=== PATIENT | female | born 1950 | race African-American/Black ===

== ENCOUNTER 2023-12-16 01:25 | Emergency (ER) | payer OTHER, SELFPAY ==
[2023-12-16 01:29] VITALS: BP 171/106
[2023-12-16 02:28] VITALS: BP 150/89
[2023-12-16 02:29] VITALS: BMI 33.1
[2023-12-16 02:39] LABS: % Basophils 0.5 % (0-2); % Eosinophils 6.3 % (0-6); % Immature Granulocytes 0.3 % (0-0.5); % Lymphocytes 39.4 % (20.5-51.1); % Neutrophils 41.5 % (42.2-75.2); Absolute Eosinophils 0.4 10^3/uL (0-0.7); Absolute Lymphocytes 2.4 10^3/uL (1.2-3.4); Absolute Monocytes 0.7 10^3/uL (0.1-0.6); Absolute Neutrophils 2.6 10^3/uL (1.4-6.5); Hematocrit 38.3 % (37.0-47.0); Hemoglobin 13.6 g/dL (12.0-16.0); Mean Corp Hgb Conc. 35.5 g/dL (33.0-37.0); Mean Corpuscular Hgb 30.3 pg (27.0-31.0); Mean Corpuscular Volume 85.3 fL (81.0-99.0); Mean Platelet Volume 9.2 fL (7.4-10.4); Nucleated Red Blood Cells % 0 %; Platelet Count 277 10^3/uL (130-400); Red Blood Cell Count 4.49 10^6/uL (4.20-5.40); Red Cell Dist. Width 13.2 % (11.5-14.5); White Blood Cell Count 6.2 10^3/uL (4.8-10.8)
--- NOTE | 2023-12-16 02:39 | ED.GENMED ---
History of Present Illness
General
Chief Complaint: Heart Rate Problem
Source: patient
Exam Limitations: none
Time Seen by Provider: 12/16/23 02:00
Nursing documentation reviewed up to this point in time: agreed with
History of Present Illness
History of Present Illness:
Pleasant 73-year-old female who presents with palpitations. She states that the palpitations been going on for several days. She did states that she followed up with her family doctor and was prescribed vitamin D due to low vitamin D levels.
Denies chest pain. She did have occasional shortness of breath but has none now. Denies fever or chills.
Past History
Past History
ED Past Medical History: HTN
Social History
Tobacco: Non-smoker
Alcohol: None
Personal: Partner
Living: with roommate
Employment: Not employed
Review of Systems
Review of Systems
Allergies reviewed?: Yes
All Other Systems: ROS reviewed and negative except as documented in HPI and ROS
Constitutional: Reports no symptoms
EENT: Reports no symptoms
Respiratory: Denies cough or trouble breathing
Cardiac: Reports palpitations; Denies chest pain or diaphoresis
ABD/GI: Reports no symptoms
: Reports no symptoms
Musculoskeletal: Reports no symptoms
Skin: Reports no symptoms
Neurological: Reports no symptoms
Endocrine: Reports no symptoms
Hematologic/Lymphatic: Reports no symptoms
Psychiatric: Reports no symptoms
Phy Exam
General Physical Exam
General Presentation: well appearing and no apparent distress
General Skin: warm and dry
General Habitus: normal
General Mental: alert
General Hydration: appears well hydrated
ENT Exam
ENT Exam: EOMI, pharynx normal, neck supple and normocephalic
Eye Exam
Eye Exam: PERRL, cornea clear and conjunctiva normal
Cardiovascular Exam
Cardiovascular Exam: regular rate/rhythm, no edema, no murmur and normal peripheral pulses
Pulmonary Exam
Pulmonary Exam: lungs clear, no respiratory distress, no rales, no crackles, no rhonchi, no stridor, no wheezing and no cough
Gastrointestinal Exam
Gastrointestinal Exam: normal bowel sounds, non tender, soft, no organomegaly, no pulsatile mass and non distended
Neurological Exam
Neurological Exam: alert, oriented x3, no motor deficits and speech normal
Musculoskeletal Exam
Musculoskeletal Exam: full ROM and no edema
Skin Exam
Skin Exam: normal color, warm/dry, no rash and no petechia
Psychiatric Exam
Psychiatric Exam: normal mood/affect
Course
Orders/Labs/Results
Orders:
Orders
12/16/23
Electrocardiogram (*1) Stat
Other Reason for Exam: CP
Comment: DONE
12/16/23 01:31
ECG [Electrocardiogram (*1)] Urgent
Reason for Study: Palpitations
EKG- Treatment ONCE
12/16/23 02:23
Complete Blood Count/With Diff Urgent
Comprehensive Metabolic Panel Urgent
Troponin I Urgent
Vitamin D, 25-Oh Urgent
12/16/23 03:52
Add On- LAB Urgent
Tests Added?: vitamin D level
12/16/23 04:46
Troponin I Urgent
Abnormal Lab Results
12/16/23
02:23
Absolute Monos (auto) 0.7 H 10^3/uL
(0.1-0.6)
Neutrophils % 41.5 L %
(42.2-75.2)
Monocytes % 12.0 H %
(1.7-9.3)
Eosinophils % 6.3 H %
(0-6)
Glucose 123 H mg/dl
(70-99)
Vitamin D 25-Hydroxy 17.7 L ng/mL
(30-80)
12/16/23 02:23
12/16/23 02:23
Vital Signs
Initial and Last Documented VS:
Initial Vital Signs
Temp Pulse Resp BP Pulse Ox
98.0 F 81 19 171/106 96
12/16/23 01:29 12/16/23 01:29 12/16/23 01:29 12/16/23 01:29 12/16/23 01:29
Last Documented Vital Signs
Temp Pulse Resp BP Pulse Ox
98.0 F 87 18 134/85 100
12/16/23 01:29 12/16/23 06:45 12/16/23 06:45 12/16/23 06:00 12/16/23 06:45
*Critical Care Note
Total Time (30-74mins, 75-104mins- exclusive of procedures): Not Applicable
ED Attending Note
-
Portions of this chart may have been created with voice recognition software.� Occasional wrong word or��sound alike� substitutions may have occurred due to the inherent limitations of voice recognition software.
Discharge Plan
Departure
Patient Disposition: Home (Routine Discharge)
Date of Disposition: 12/16/23
Time of Disposition: 06:25
Patient with high blood pressure during this ER visit?: Yes
Condition: Good
Discharge Problem:
Palpitations
Instructions: Palpitations (DC), BLOOD PRESSURE
Prescriptions:
No Action
Vitamin D2 25,000 unit Capsule
50,000 unit PO WEEKLY
Referrals:
Jareth Eugnee DO [Family Provider] -
Activity Restrictions/Additional Instructions:
It was a pleasure meeting you and taking part in your care. We hope for your continued healing and wellness.
Please read discharge instructions in their entirety. However, they are for general education and may not describe your exact diagnosis at discharge. Information on your ER visit and medical conditions were discussed with you along with appropriate
follow up information...
If indicated, please take your medications as instructed and indicated on discharge paperwork.
Please schedule a follow up appointment as directed. Call to schedule an appointment
Please return to the emergency department with ANY change in, persisting, or worsening of symptoms. If any of your symptoms do not improve, or persist, or become more severe within 6-12 hours, please return to the emergency department for further
care.
Please return to the emergency department if you develop a headache, neck pain/stiffness, fever greater than 100.4F, chest pain, shortness of breath, persistent nausea, vomiting, slurred speech, difficulty walking, numbness/tingling, weakness, signs
of infection or any other symptoms that are worrisome to you.
If you have any questions or concerns please do not hesitate to call the Hospital at
Interventions
Interventions:
*Risk Screen - Suicide Last Done: 12/16/23 01:29
*General Assessment Last Done: 12/16/23 01:29
*Neglect/Abuse Screening Last Done: 12/16/23 01:29
ED- Fall Risk Assessment Last Done: 12/16/23 02:20
*ED COVID-19 Vaccine History Last Done: 12/16/23 01:29
*Nursing Disposition Last Done: 12/16/23 06:45
ED- Cardiac Assessment Last Done: 12/16/23 02:20
ED- Pulmonary Assessment Last Done: 12/16/23 02:20
Discharge Date and Time
Discharge Date/Time: 12/16/23 06:45
Print Language: MALDIVIAN
[2023-12-16 02:57] LABS: ALT (SGPT) 12 U/L (0-35); AST (SGOT) 22 U/L (14-36); Albumin 4.6 g/dl (3.5-5.0); Alkaline Phosphatase 77 U/L (38-126); Blood Urea Nitrogen 14 mg/dl (7-17); Calcium 9.6 mg/dl (8.4-10.2); Carbon Dioxide 22 mmol/L (22-30); Chloride 103 mmol/L (98-107); Estimated Creatinine Clearance 64 ml/min; Glucose 123 mg/dl (70-99); Potassium 3.8 mmol/L (3.5-5.1); Sodium 142 mmol/L (135-145); Total Bilirubin 0.3 mg/dl (0.2-1.3); Total Protein 7.5 g/dl (6.3-8.2); eGFR > 60.00
[2023-12-16 03:00] VITALS: BP 147/73
[2023-12-16 03:09] LABS: Troponin I 0.023 ng/ml
[2023-12-16 04:00] VITALS: BP 131/81
[2023-12-16 04:45] LABS: Vitamin D, 25-OH*** 17.7 ng/mL (30-80)
[2023-12-16 05:00] VITALS: BP 132/92
[2023-12-16 05:33] LABS: Troponin I < 0.012 ng/ml
[2023-12-16 06:00] VITALS: BP 134/85
== END 2023-12-16 06:45 | disposition home or self-care (01) ==
LOC: EMR 01:25
PROVIDERS: EMERGENCY PHYSICIAN Student in an Organized Health Care Education/Training Program; FAMILY PHYSICIAN Family Medicine
DX: R00.2 Palpitations (principal); I10 Essential (primary) hypertension; E55.9 Vitamin D deficiency, unspecified
CPT/HCPCS: 99283; 80053; 82306; 84484; 85025; 93005

== ENCOUNTER → 2024-01-25 20:59 | Emergency (ER) | payer OTHER, SELFPAY ==
[2024-01-25 21:01] VITALS: BP 153/86
[2024-01-25 21:30] LABS: % Basophils 0.4 % (0-2); % Immature Granulocytes 0.4 % (0-0.5); % Lymphocytes 38.4 % (20.5-51.1); % Monocytes 11.1 % (1.7-9.3); % Neutrophils 43.7 % (42.2-75.2); Absolute Eosinophils 0.5 10^3/uL (0-0.7); Absolute Lymphocytes 2.9 10^3/uL (1.2-3.4); Absolute Monocytes 0.8 10^3/uL (0.1-0.6); Absolute Neutrophils 3.3 10^3/uL (1.4-6.5); Hematocrit 39.7 % (37.0-47.0); Hemoglobin 13.6 g/dL (12.0-16.0); Mean Corp Hgb Conc. 34.3 g/dL (33.0-37.0); Mean Corpuscular Hgb 29.9 pg (27.0-31.0); Mean Corpuscular Volume 87.3 fL (81.0-99.0); Mean Platelet Volume 9.4 fL (7.4-10.4); Nucleated Red Blood Cells % 0 %; Platelet Count 292 10^3/uL (130-400); Red Blood Cell Count 4.55 10^6/uL (4.20-5.40); Red Cell Dist. Width 13.5 % (11.5-14.5); White Blood Cell Count 7.6 10^3/uL (4.8-10.8)
[2024-01-25 21:44] LABS: ALT (SGPT) 18 U/L (0-35); AST (SGOT) 25 U/L (14-36); Albumin 4.4 g/dl (3.5-5.0); Alkaline Phosphatase 85 U/L (38-126); Blood Urea Nitrogen 18 mg/dl (7-17); Calcium 9.7 mg/dl (8.4-10.2); Carbon Dioxide 27 mmol/L (22-30); Chloride 103 mmol/L (98-107); Glucose 107 mg/dl (70-99); Potassium 4.2 mmol/L (3.5-5.1); Sodium 141 mmol/L (135-145); Total Bilirubin 0.1 mg/dl (0.2-1.3); Total Protein 7.4 g/dl (6.3-8.2); eGFR > 60.00
--- NOTE | 2024-01-25 21:52 | ED.GENMED ---
History of Present Illness
General
Chief Complaint: Abnormal Lab Value
Source: patient
Exam Limitations: none
Time Seen by Provider: 01/25/24 21:52
Nursing documentation reviewed up to this point in time: agreed with
History of Present Illness
History of Present Illness:
Patient presents to ED for an evaluation with concern that her vitamin D level may be too low and continues to be so, as it was first detected during routine blood work with her primary care physician 1 month ago. Patient was given prescription for
vitamin D supplementation, but has only take 1 tablet 3 weeks ago. Patient was not given clear instructions on whether or not she is to continue taking her medication. Otherwise, patient has no other complaints. Denies fever or chills. Denies
weakness. Denies joint pain. Denies swelling. Denies loss of appetite. Denied nausea or vomiting.
Past History
Past History
ED Past Medical History: HTN
Social History
Tobacco: Non-smoker
Alcohol: None
Personal: Partner
Living: with roommate
Employment: Not employed
Review of Systems
Review of Systems
Allergies reviewed?: Yes
All Other Systems: ROS reviewed and negative except as documented in HPI and ROS
Constitutional: Reports no symptoms; Denies fever
Respiratory: Reports no symptoms
ABD/GI: Reports no symptoms
Musculoskeletal: Reports no symptoms; Denies joint pain or muscle pain
Skin: Reports no symptoms
Neurological: Reports no symptoms; Denies weakness
Phy Exam
Physical Exam
Physical Exam:
Physical Exam
General: no apparent distress, not acutely ill. afebrile
Head: nc/at. eomi
Neck: supple. normal range of motion
Neuro: alert and oriented. no focal neurological deficits
Skin: no rash
Psychiatric: well kept. interactive and cooperative
Extremities: no edema.
Course
Orders/Labs/Results
Orders:
Orders
01/25/24 21:16
Complete Blood Count/With Diff Urgent
Comprehensive Metabolic Panel Urgent
Vitamin D, 25-Oh Urgent
01/25/24 21:44
Add On- LAB Urgent
Tests Added?: Vitamin D
Abnormal Lab Results
01/25/24
21:16
Absolute Monos (auto) 0.8 H 10^3/uL
(0.1-0.6)
Monocytes % 11.1 H %
(1.7-9.3)
BUN 18 H mg/dl
(7-17)
Glucose 107 H mg/dl
(70-99)
Total Bilirubin 0.1 L mg/dl
(0.2-1.3)
01/25/24 21:16
01/25/24 21:16
Vital Signs
Initial and Last Documented VS:
Initial Vital Signs
Temp Pulse Resp BP Pulse Ox
98.2 F 74 18 153/86 99
01/25/24 21:01 01/25/24 21:01 01/25/24 21:01 01/25/24 21:01 01/25/24 21:01
Last Documented Vital Signs
Temp Pulse Resp BP Pulse Ox
98.2 F 74 18 153/86 99
01/25/24 21:01 01/25/24 21:01 01/25/24 21:01 01/25/24 21:01 01/25/24 21:01
MDM/Problems Addressed
MDM/Problems Addressed:
Patient unfortunately presents to ED, as there may have been some miscommunication with her primary care physician. Otherwise, patient is afebrile, hemodynamically stable, and nontoxic-appearing. Patient was able to provide prescription for
vitamin D, which states on the bottle that patient is to take 1 tablet every week. This instruction was reinforced with the patient, along with recommendation to repeat blood work in 4 to 6 weeks with her primary care physician. Patient expresses
understanding, at time of discharge.
*Critical Care Note
Total Time (30-74mins, 75-104mins- exclusive of procedures): Not Applicable
ED Attending Note
-
Portions of this chart may have been created with voice recognition software.� Occasional wrong word or��sound alike� substitutions may have occurred due to the inherent limitations of voice recognition software.
Discharge Plan
Departure
Patient Disposition: Home (Routine Discharge)
Date of Disposition: 01/25/24
Time of Disposition: 21:52
Patient with high blood pressure during this ER visit?: Yes
Discharge Problem:
Vitamin deficiency
Instructions: Vitamin D deficiency, BLOOD PRESSURE
Prescriptions:
No Action
Vitamin D2 25,000 unit Capsule
50,000 unit PO WEEKLY
Activity Restrictions/Additional Instructions:
As discussed, please continue to take already prescribed vitamin D tablets, along with repeat blood work with your primary care physician.
Interventions
Interventions:
*Risk Screen - Suicide Last Done: 01/25/24 21:01
*Neglect/Abuse Screening Last Done: 01/25/24 21:01
*Nursing Disposition Last Done: 01/25/24 21:58
Discharge Date and Time
Print Language: KYRGYZ
[2024-01-26 02:50] LABS: Vitamin D, 25-OH*** 18.1 ng/mL (30-80)
== END | disposition home or self-care (01) ==
LOC: EMR 20:59
PROVIDERS: Emergency Medicine; EMERGENCY PHYSICIAN Emergency Medicine
DX: E55.9 Vitamin D deficiency, unspecified (principal); I10 Essential (primary) hypertension
CPT/HCPCS: 99283; 80053; 82306; 85025

== ENCOUNTER 2024-05-29 23:57 | Inpatient (IN) | payer OTHER, SELFPAY ==
[2024-05-29 17:00] VITALS: BP 135/92
--- NOTE | 2024-05-29 17:13 | ED.GENMED ---
ED Provider Triage
<Yan Wright Jr., PA-C - Last Filed: 05/30/24 18:24>
-
Patient seen by provider in Triage?: Seen in Triage
Attestation: A medical screening examination has been initiated by a qualified medical provider. Based on the assessment performed at this time, it has been determined that an emergent medical condition may exist and the patient has been informed
that further medical evaluation and possible additional diagnostic testing may be needed.
HPI: 73-year-old female presenting to the emergency department today with concerns of vague abdominal discomfort nausea vomiting. No specific diarrhea. Plan for initial labs. No focal tenderness to palpation on examination.
GENERAL: Alert , in no apparent distress
EYE: No visual abnormalities.
NECK: Trachea midline
ENT: No visible abnormalities.
LUNGS: No acute respiratory distress
NEUROLOGICAL: Alert and oriented
SKIN: Skin intact. No visible changes.
MUSCULOSKELETAL: Moving extremities normally
PSYCH: Normal and appropriate interaction.
This is a medical evaluation conducted in person to initiate diagnostic evaluation and provide initial therapeutics. Please see further documentation by the treating clinician.
History of Present Illness
<Yan Wright Jr., PA-C - Last Filed: 05/30/24 18:24>
General
Chief Complaint: Abdominal Symptoms
Time Seen by Provider: 05/29/24 20:32
<EVAN Vaughan - Last Filed: 05/29/24 23:23>
General
Source: patient
Exam Limitations: none
Nursing documentation reviewed up to this point in time: agreed with
History of Present Illness
History of Present Illness:
Patient is a 73-year-old female who presents to the ER complaining of abdominal pain since last night after eating broccoli soup. She moved her bowels (small amt this am) but does feel little constipated. She denies any nausea vomiting. She denies
any fever or chills. She does not feel like this is reflux that she did try Mylanta and Tums.
Past History
<Yan Wright Jr., PA-C - Last Filed: 05/30/24 18:24>
Past History
ED Past Medical History: HTN
Social History
Tobacco: Non-smoker
Alcohol: None
Personal: Partner
Living: with roommate
Employment: Not employed
Review of Systems
<EVAN Vaughan - Last Filed: 05/29/24 23:23>
Review of Systems
Allergies reviewed?: Yes
All Other Systems: ROS reviewed and negative except as documented in HPI and ROS
Constitutional: Reports no symptoms
Respiratory: Reports no symptoms
ABD/GI: Reports abdominal pain and constipated; Denies nausea or vomiting
: Reports no symptoms; Denies dysuria, flank pain, incontinence or urgency
Musculoskeletal: Reports no symptoms
Skin: Reports no symptoms
Psychiatric: Reports no symptoms
Phy Exam
<EVAN Vaughan - Last Filed: 05/29/24 23:23>
General Physical Exam
General Presentation: no apparent distress
General age: appears stated age
General Skin: warm and dry
General Habitus: normal
General Mental: alert
General Hydration: appears well hydrated
Gastrointestinal Exam
Gastrointestinal Exam: soft and other (non specific mild tenderness )
Neurological Exam
Neurological Exam: alert and oriented x3
Course
<Yan Wright Jr., PA-C - Last Filed: 05/30/24 18:24>
Orders/Labs/Results
Orders:
Orders
05/29/24 17:16
CBC/With Diff [Complete Blood Count/With Diff] Urgent
CMP [Comprehensive Metabolic Panel] Urgent
05/29/24 17:33
Urinalysis Reflex To Culture Urgent
Date Specimen was Collected: 05/29/24
Time Specimen was Collected: 17:33
Urine Microscopic Reflex Cult Urgent
05/29/24 21:14
CT Abd/Pel (IV only)-DH only Urgent
Comment:
Reason For Exam: abd pain
IV Insert/Care/Rem.- Treatment PRN
0.9% Sodium Chloride 1000 ml [Nss] 1,000 ml IV BOLUS
05/29/24 23:17
LevoFLOXacin 500 MG/100 ML [Levaquin] 500 mg in 100 ml IV NOW
MetroNIDAZOLE 500 MG/100 ML [Flagyl 500 mg] 100 ml IV NOW
05/29/24 23:18
Acetaminophen [Tylenol] 650 mg PO NOW STA
05/29/24 23:34
Admit/Transfer Patient As Directed
Co-Sign Provider:
Level of Care: Inpatient admission
Assign to:: Medical/Surgical
Physician / Group: zarina weston
Diagnosis: diverticulitis
Reason for Hospitalization: diverticulitis
Expected length of stay greater than two midnights?: Yes
ELOS- Estimated Length of Stay in days: 3
I certify the patient meets the requirements for IP care: Yes
PRN Pain Medication Management As Directed
May give lesser potent ordered pain med per pt: Yes
preference::
Protocol:: Medication orders for pain may be administered in a
manner that supports deferring to patient preference
when the pt is:
- Requesting an ordered lesser potent pain medication.
Least to most potent pain medications are defined
as: acetaminophen < NSAID < tramadol < opioids
(morphine, oxycodone, hydromorphone).
- Requesting a lesser dose of the same medication IF
ORDERED.
- Requesting a less intrusive route of administration
if both routes are prescribed by the provider (PO <
IV).
05/29/24 23:35
Code Status As Directed
Resuscitation Status: Full Code
05/30/24 00:01
0.9% Sodium Chloride 1000 ml [Nss] 1,000 ml IV 75 mls/hr
Acetaminophen [Tylenol] 650 mg PO Q4HPRN PRN
MetroNIDAZOLE 500 MG/100 ML [Flagyl 500 mg] 100 ml IV Q8H
05/30/24 00:01
ColoRectal Surgery Consult Routine
Consulting Provider: Benedicto Rueda
Was physician already notified: No
Reason for consult: diverticulitis/abscess
Consult Notification Routine
Specialty to Notify: Colorectal Surgery
Date consulting provider notified: 05/30/24
Time consulting provider notified: 07:58
Notified:: Provider
Activity As Directed
Activity Level: As Tolerated
Vital Signs As Directed
Frequency: Per unit guidelines
DX Deep Vein Thrombosis Video Routine
05/30/24 05:07
Basic Metabolic Panel IN AM
Complete Blood Count/With Diff IN AM
Hemoglobin A1c [Glycohemoglobin (HgbA1c)] IN AM
05/30/24 Breakfast
NPO
Allow oral meds: Yes
Allow clear liquids: No
05/30/24 18:00
Enoxaparin Sodium [Lovenox] 40 mg SC QPM
05/31/24 00:00
LevoFLOXacin 750 MG/150 ML [Levaquin] 750 mg in 150 ml IV Q24H
05/31/24 06:00
Basic Metabolic Panel IN AM
Complete Blood Count/With Diff IN AM
06/01/24 06:00
Basic Metabolic Panel IN AM
Complete Blood Count/With Diff IN AM
Abnormal Lab Results
05/29/24 05/29/24
17:16 17:33
WBC 12.8 H 10^3/uL
(4.8-10.8)
Abs Immat Gran (auto) 0.1 H 10^3/uL
(0-0.05)
Absolute Neuts (auto) 9.5 H 10^3/uL
(1.4-6.5)
Absolute Monos (auto) 1.2 H 10^3/uL
(0.1-0.6)
Lymphocytes % 14.4 L %
(20.5-51.1)
Monocytes % 9.4 H %
(1.7-9.3)
Sodium 132 L mmol/L
(135-145)
Glucose 120 H mg/dl
(70-99)
Ur Occult Blood Reflex 1+ A
(Negative)
05/29/24 17:16
05/29/24 17:16
Vital Signs
Initial and Last Documented VS:
Initial Vital Signs
Temp Pulse Resp BP Pulse Ox
98.8 F 115 20 135/92 97
05/29/24 17:00 05/29/24 17:00 05/29/24 17:00 05/29/24 17:00 05/29/24 17:00
Last Documented Vital Signs
Temp Pulse Resp BP Pulse Ox
98.9 F 94 16 132/84 99
05/30/24 15:20 05/30/24 15:20 05/30/24 15:20 05/30/24 15:20 05/30/24 15:20
<EVAN Vaughan - Last Filed: 05/29/24 23:23>
Orders/Labs/Results
Orders:
Orders
05/29/24 17:16
CBC/With Diff [Complete Blood Count/With Diff] Urgent
CMP [Comprehensive Metabolic Panel] Urgent
05/29/24 17:33
Urinalysis Reflex To Culture Urgent
Date Specimen was Collected: 05/29/24
Time Specimen was Collected: 17:33
Urine Microscopic Reflex Cult Urgent
05/29/24 21:14
CT Abd/Pel (IV only)-DH only Urgent
Comment:
Reason For Exam: abd pain
IV Insert/Care/Rem.- Treatment PRN
0.9% Sodium Chloride 1000 ml [Nss] 1,000 ml IV BOLUS
05/29/24 23:17
LevoFLOXacin 500 MG/100 ML [Levaquin] 500 mg in 100 ml IV NOW
MetroNIDAZOLE 500 MG/100 ML [Flagyl 500 mg] 100 ml IV NOW
05/29/24 23:18
Acetaminophen [Tylenol] 650 mg PO NOW STA
05/29/24 23:34
Admit/Transfer Patient As Directed
Co-Sign Provider:
Level of Care: Inpatient admission
Assign to:: Medical/Surgical
Physician / Group: zarina weston
Diagnosis: diverticulitis
Reason for Hospitalization: diverticulitis
Expected length of stay greater than two midnights?: Yes
ELOS- Estimated Length of Stay in days: 3
I certify the patient meets the requirements for IP care: Yes
PRN Pain Medication Management As Directed
May give lesser potent ordered pain med per pt: Yes
preference::
Protocol:: Medication orders for pain may be administered in a
manner that supports deferring to patient preference
when the pt is:
- Requesting an ordered lesser potent pain medication.
Least to most potent pain medications are defined
as: acetaminophen < NSAID < tramadol < opioids
(morphine, oxycodone, hydromorphone).
- Requesting a lesser dose of the same medication IF
ORDERED.
- Requesting a less intrusive route of administration
if both routes are prescribed by the provider (PO <
IV).
05/29/24 23:35
Code Status As Directed
Resuscitation Status: Full Code
05/30/24 00:01
0.9% Sodium Chloride 1000 ml [Nss] 1,000 ml IV 75 mls/hr
Acetaminophen [Tylenol] 650 mg PO Q4HPRN PRN
MetroNIDAZOLE 500 MG/100 ML [Flagyl 500 mg] 100 ml IV Q8H
05/30/24 00:01
ColoRectal Surgery Consult Routine
Consulting Provider: Benedicto Rueda
Was physician already notified: No
Reason for consult: diverticulitis/abscess
Consult Notification Routine
Specialty to Notify: Colorectal Surgery
Date consulting provider notified: 05/30/24
Time consulting provider notified: 07:58
Notified:: Provider
Activity As Directed
Activity Level: As Tolerated
Vital Signs As Directed
Frequency: Per unit guidelines
DX Deep Vein Thrombosis Video Routine
05/30/24 05:07
Basic Metabolic Panel IN AM
Complete Blood Count/With Diff IN AM
Hemoglobin A1c [Glycohemoglobin (HgbA1c)] IN AM
05/30/24 Breakfast
NPO
Allow oral meds: Yes
Allow clear liquids: No
05/30/24 18:00
Enoxaparin Sodium [Lovenox] 40 mg SC QPM
05/31/24 00:00
LevoFLOXacin 750 MG/150 ML [Levaquin] 750 mg in 150 ml IV Q24H
05/31/24 06:00
Basic Metabolic Panel IN AM
Complete Blood Count/With Diff IN AM
06/01/24 06:00
Basic Metabolic Panel IN AM
Complete Blood Count/With Diff IN AM
Abnormal Lab Results
05/29/24 05/29/24
17:16 17:33
WBC 12.8 H 10^3/uL
(4.8-10.8)
Abs Immat Gran (auto) 0.1 H 10^3/uL
(0-0.05)
Absolute Neuts (auto) 9.5 H 10^3/uL
(1.4-6.5)
Absolute Monos (auto) 1.2 H 10^3/uL
(0.1-0.6)
Lymphocytes % 14.4 L %
(20.5-51.1)
Monocytes % 9.4 H %
(1.7-9.3)
Sodium 132 L mmol/L
(135-145)
Glucose 120 H mg/dl
(70-99)
Ur Occult Blood Reflex 1+ A
(Negative)
05/29/24 17:16
05/29/24 17:16
Vital Signs
Initial and Last Documented VS:
Initial Vital Signs
Temp Pulse Resp BP Pulse Ox
98.8 F 115 20 135/92 97
05/29/24 17:00 05/29/24 17:00 05/29/24 17:00 05/29/24 17:00 05/29/24 17:00
Last Documented Vital Signs
Temp Pulse Resp BP Pulse Ox
98.9 F 94 16 132/84 99
05/30/24 15:20 05/30/24 15:20 05/30/24 15:20 05/30/24 15:20 05/30/24 15:20
<EVAN Vaughan - Last Filed: 05/29/24 23:23>
MDM/Problems Addressed
Differential Diagnosis Includes:
Not limited to diverticulitis, colitis constipation obstruction
MDM/Problems Addressed:
Patient is a 73-year-old female started with abdominal pain since last night CAT scan does show diverticulitis within the anterior lateral left upper pelvis and at the junction of the distal ascending colon and superior sigmoid colon with
significant phonatory changes with evidence of small intramural abscess no free air. On exam patient nontoxic, is abdomen is minimally tender; no guarding white count 12.8. Patient is febrile however patient given Tylenol fluids Case discussed
with colorectal surgery. Patient is allergic to penicillin reports tongue swelling as discussed with Dr. Rueda IV Levaquin and IV Flagyl ordered
<EVAN Vaughan - Last Filed: 05/29/24 23:23>
*Radiology
Radiology exam reviewed: radiology read reviewed
*Critical Care Note
Total Time (30-74mins, 75-104mins- exclusive of procedures): Not Applicable
<EVAN Vaughan - Last Filed: 05/29/24 23:23>
Patient Management
Discussion with other providers: [employer] Professor (DR Benedicto Rueda colorectal )
ED Attending Note
<Yan Wright Jr., PA-C - Last Filed: 05/30/24 18:24>
-
Portions of this chart may have been created with voice recognition software.� Occasional wrong word or��sound alike� substitutions may have occurred due to the inherent limitations of voice recognition software.
Discharge Plan
Departure
Patient Disposition: Admit
Date of Disposition: 05/29/24
Time of Disposition: 23:21
Admit to: Med/Surg
Admit to doctor: hospitalist
Patient with high blood pressure during this ER visit?: Yes
Condition: Fair
Covid-19: Not Applicable
Discharge Problem:
diverticulitis with intramural abscess
Interventions
Interventions:
*Risk Screen - Suicide Last Done: 05/29/24 17:00
*General Assessment Last Done: 05/29/24 17:00
*Neglect/Abuse Screening Last Done: 05/29/24 17:00
ED- Fall Risk Assessment Last Done: 05/29/24 20:38
*ED COVID-19 Vaccine History Last Done: 05/29/24 20:38
*Nursing Disposition Last Done: 05/30/24 00:13
QV-Uxvcoo-Fozdqjrqwz Assessment Last Done: 05/29/24 23:06
Discharge Date and Time
Discharge Date/Time: 05/30/24 00:14
[2024-05-29 17:29] LABS: % Basophils 0.2 % (0-2); % Eosinophils 1.2 % (0-6); % Immature Granulocytes 0.4 % (0-0.5); % Lymphocytes 14.4 % (20.5-51.1); % Monocytes 9.4 % (1.7-9.3); % Neutrophils 74.4 % (42.2-75.2); Absolute Eosinophils 0.2 10^3/uL (0-0.7); Absolute Immature Granulocytes 0.1 10^3/uL (0-0.05); Absolute Lymphocytes 1.9 10^3/uL (1.2-3.4); Absolute Monocytes 1.2 10^3/uL (0.1-0.6); Absolute Neutrophils 9.5 10^3/uL (1.4-6.5); Hematocrit 40.1 % (37.0-47.0); Hemoglobin 13.5 g/dL (12.0-16.0); Mean Corp Hgb Conc. 33.7 g/dL (33.0-37.0); Mean Corpuscular Hgb 30.8 pg (27.0-31.0); Mean Corpuscular Volume 91.3 fL (81.0-99.0); Mean Platelet Volume 9.7 fL (7.4-10.4); Nucleated Red Blood Cells % 0 %; Platelet Count 269 10^3/uL (130-400); Red Blood Cell Count 4.39 10^6/uL (4.20-5.40); Red Cell Dist. Width 13.3 % (11.5-14.5); White Blood Cell Count 12.8 10^3/uL (4.8-10.8)
[2024-05-29 17:43] LABS: ALT (SGPT) 22 U/L (0-35); AST (SGOT) 22 U/L (14-36); Albumin 4.6 g/dl (3.5-5.0); Alkaline Phosphatase 76 U/L (38-126); Blood Urea Nitrogen 11 mg/dl (7-17); Calcium 9.1 mg/dl (8.4-10.2); Carbon Dioxide 26 mmol/L (22-30); Chloride 98 mmol/L (98-107); Glucose 120 mg/dl (70-99); Potassium 3.7 mmol/L (3.5-5.1); Sodium 132 mmol/L (135-145); Total Bilirubin 1.1 mg/dl (0.2-1.3); Total Protein 7.5 g/dl (6.3-8.2); eGFR > 60.00
[2024-05-29 17:55] LABS: Urine Albumin Negative (Neg - Trace); Urine Bilirubin Negative (Negative); Urine Character Clear (Clear); Urine Glucose Negative (Negative); Urine Ketone Negative (Negative); Urine Leukocyte Negative (Negative); Urine Nitrite Negative (Negative); Urine Occult Blood 1+ (Negative); Urine Specific Gravity 1.005 (<1.030); Urine Urobilinogen Negative (Neg - 1+)
[2024-05-29 17:57] LABS: Urine Color Straw
[2024-05-29 18:02] LABS: Urine Red Blood Cell 0-2 /HPF (0-2)
[2024-05-29 20:07] VITALS: BP 145/86
[2024-05-29 21:06] VITALS: BMI 34.3
[2024-05-29 21:10] VITALS: BP 143/85
[2024-05-29] MEDS: NSS 1000 IV (21:21)
[2024-05-29 23:00] VITALS: BP 147/87
[2024-05-29 23:01] VITALS: BP 147/87
--- NOTE | 2024-05-29 23:21 | HPS.HSE ---
Addendum entered and electronically signed by Willie Meyer MD 05/29/24 23:42:
I saw and examined the patient.
The ENERGY MANAGEMENT SPECIALIST or PA's note was reviewed and I agree with the note.
Comment:
[id number] HTN�a/w�acute diverticulitis with intramural contained abscess�at junction of distal descending colon and sigmoid colon. Asso. with�sepsis.�Hi grade fever and leucocytosis.��Empiric IV LVQ and Flagyl. Allergy to PCN.� NPO,�IVF and��Analgesia
PRN.�IP MS. CRS consulted.
� �
Original Note:
Family Physician
-
Family Physician: Jareth Eugene
Chief Complaint
-
abdominal soreness
History of Present Illness
73-year-old female with PMH for pre DM who presents to the ER complaining of abdominal soreness since last night after eating broccoli soup. denied N/v., stated some diarrhea. denied fever. complained of Chills. denied CARLOS, dizzy or syncope.denied
dysuria or hematuria.
Ct with diverticulitis/abscess. received Flagyl and Levaquin in ER. admitting for further management.
Medical History
Past Medical History
Past Medical History: Reports Other
Additional Past Medical History:
pre DM
Past Surgical History: Reports Other
Additional Past Surgical History:
tubal ligation
Social History
Tobacco: Non-smoker
Alcohol: None
Drug: None
Living: With Family
Family History
Family History: Not pertinent
Allergies / Home Medications
Allergies reflects when Allergies were last updated in [facility].
Home Medications with original date entered in [facility]
Allergy/Medication List:
Allergies
Allergy/AdvReac Type Severity Reaction Status Date / Time
methylene blue Allergy Unknown Verified 05/29/24 17:05
Penicillins Allergy Anaphylaxis Verified 05/29/24 17:05
Sulfa (Sulfonamide Allergy Anaphylaxis Verified 05/29/24 17:05
Antibiotics)
sulfamethoxazole Allergy Swelling Verified 05/29/24 17:05
[From Bactrim]
trimethoprim [From Bactrim] Allergy Swelling Verified 05/29/24 17:05
Home Medications
No Meds [No Current Medications] 05/29/24
Review of Systems
-
Constitutional: Reports No Symptoms
EENT: Reports No Symptoms
Respiratory: Reports No Symptoms
Cardiac: Reports No Symptoms
Abdomen/GI: Reports Abdominal Pain and Diarrhea
: Reports No Symptoms
Musculoskeletal: Reports No Symptoms
Skin: Reports No Symptoms
Neurological: Reports No Symptoms
Endocrine: Reports No Symptoms
Hematologic/Lymphatic: Reports No Symptoms
Psych: Reports No Symptoms
Physical Exam
Vital Signs
Vital Signs
Temp Pulse Resp BP Pulse Ox
101.3 F H 117 20 147/87 95
05/29/24 23:01 05/29/24 23:01 05/29/24 23:01 05/29/24 23:01 05/29/24 23:01
Physical Exam
General: Well Developed, Well Nourished and No Apparent Distress
HEENT: NormoCephalic, Moist mucous membranes and Atraumatic
Respiratory: Clear
Cardiac: S1/S2 and Regular Rhythm; No Murmur or Rub
GI: Soft, Non Tender, Non Distended and Normal Bowel Sounds; No Organomegaly
Rectal: Deferred by Provider
Musculoskeletal: No Clubbing, No Cyanosis and No Edema
Skin: No Rash
Neuro: AO x 3 and Nonfocal/grossly intact
Psych: Calm
Laboratory Results
-
05/29/24 17:16
05/29/24 17:16
Laboratory Results
Total Bilirubin 1.1 mg/dl (0.2-1.3) 05/29/24 17:16
AST 22 U/L (14-36) 05/29/24 17:16
ALT 22 U/L (0-35) 05/29/24 17:16
Alkaline Phosphatase 76 U/L (38-126) 05/29/24 17:16
Data Reviewed
-
CT Scan: Report Reviewed by me
Lab Data: Labs Reviewed by me
Impression/Plan
-
#abdominal pain secondary to diverticulitis/abscess
-sepis as evident by wbc 12.8,tachycardia and fever
-fluids continued
-Ct abdomen pelvis with the impression of CT findings compatible with diverticulitis within the anterolateral left upper pelvis, at the junction of the distal descending colon and the superior sigmoid colon. Significant adjacent inflammatory changes
with evidence for a small intramural abscess. Tiny foci of adjacent contained extraluminal air. No evidence for free air.Large heterogeneously enhancing mass, stable, and compatible with a stable large fibroid.There is air within the central
endometrial canal, uncertain etiology and significance. No adjacent bowel loop is seen that would suggest a focal fistula.Small umbilical hernia which contains fluid, stable from previous examination.
-Levaquin and Flagyl continued
-NPO
-fluids continued for hydration
-colorectal consulted
#hyponatremia hypovolemic
-na 132
-normal saline continued
-BMP in am
#pre DM
-obtain a1c in AM
#DVT prophylaxis
-Lovenox
#CODE status
-full code
[2024-05-29] MEDS: LEVAQUIN 100 IV (23:29)
[2024-05-29] MEDS: TYLENOL 650 MG PO (23:29)
[2024-05-29 23:53] VITALS: BP 145/86
[2024-05-30] VITALS: BP 154/87
[2024-05-30] MEDS: NSS 1000 IV ×2 (00:21→08:05)
[2024-05-30] MEDS: FLAGYL 500 MG 100 IV ×4 (00:23→23:00)
[2024-05-30 00:46] VITALS: BP 135/90
[2024-05-30 00:47] VITALS: BMI 33.9
--- NOTE | 2024-05-30 02:45 | PTCARENOTE ---
Pt arrived at 0030 via stretcher from ED. Pt was able to ambulate to bed. VSS. IVF infusing. oriented to room and call bowen. bed in lowest position and locked.
--- NOTE | 2024-05-30 06:14 | DOWNTIME ---
There was a [employer] Supervisor Downtime on 05/30/2024 from 0100 to 05/30/2023 at 0235 . Downtime documentation of patient's care, including medication administrations, has been reconciled in the electronic record per guidelines. Refer to the
patient's paper chart under the miscellaneous tab to see printed paper medication records and downtime forms.
[2024-05-30 06:23] LABS: % Basophils 0.3 % (0-2); % Immature Granulocytes 0.3 % (0-0.5); % Lymphocytes 18.3 % (20.5-51.1); % Monocytes 13.6 % (1.7-9.3); % Neutrophils 66.5 % (42.2-75.2); Absolute Eosinophils 0.1 10^3/uL (0-0.7); Absolute Lymphocytes 1.9 10^3/uL (1.2-3.4); Absolute Monocytes 1.4 10^3/uL (0.1-0.6); Absolute Neutrophils 6.8 10^3/uL (1.4-6.5); Hematocrit 37.3 % (37.0-47.0); Hemoglobin 12.4 g/dL (12.0-16.0); Mean Corp Hgb Conc. 33.2 g/dL (33.0-37.0); Mean Corpuscular Hgb 29.9 pg (27.0-31.0); Mean Corpuscular Volume 89.9 fL (81.0-99.0); Mean Platelet Volume 9.8 fL (7.4-10.4); Nucleated Red Blood Cells % 0 %; Platelet Count 248 10^3/uL (130-400); Red Blood Cell Count 4.15 10^6/uL (4.20-5.40); Red Cell Dist. Width 13.5 % (11.5-14.5); White Blood Cell Count 10.2 10^3/uL (4.8-10.8)
[2024-05-30 07:03] LABS: Blood Urea Nitrogen 8 mg/dl (7-17); Calcium 8.4 mg/dl (8.4-10.2); Carbon Dioxide 25 mmol/L (22-30); Chloride 102 mmol/L (98-107); Estimated Creatinine Clearance 71 ml/min; Glucose 115 mg/dl (70-99); Potassium 3.8 mmol/L (3.5-5.1); Sodium 137 mmol/L (135-145); eGFR > 60.00
[2024-05-30 07:25] VITALS: BP 142/79
--- NOTE | 2024-05-30 08:13 | W.PN.HOSP.TC ---
Addendum entered and electronically signed by Dewey Crawford MD 05/30/24 23:07:
Attending Addendum-
I saw and evaluated the patient. I reviewed the resident�s note and agree with findings and plan as documented in the resident�s note. Sub: seen with present. States she had mild abd pain after lunch. No N/V Full 12 point ROS reviewed and
negative except as documented Exam: Vitals reviewed in chart GEN-NAD heart RRR lungs clear abd soft mild TTP LUQ no rebound guarding LE no edema
Plan:
# Sepsis secondary to acute complicated sigmoid diverticulitis with small IM abscess
- DC ivf
- leukocytosis resolved
- cont Levaquin and Flagyl day # 2
- advance diet
- colorectal input appreciated- ctm no indication for surgery
#hyponatremia hypovolemic
- resolved s/p IVF
- BMP in am
#pre DM
-HbA1c- 5.9
#DVT prophylaxis
-Lovenox
#CODE status
-full code
Dispo- DC home in am
Time spent coordinating care, review of plan of care with resident, personally reviewed records in EMR, med rec, consults, notes, labs, radiology, d/w nursing and � 52 mins
Original Note:
Today's Communication/Plan
-
Clear liquids for now; will advance to full liquids at dinner if tolerates breakfast and lunch
Continue IV antibiotics
Continue IV fluids till dinner and d/c
Assessment / Plan
Assessment / Plan
73-year-old female presents to [facility] complaining of abdominal soreness after she ate some broccoli soup.
# Sepsis secondary to diverticulitis/abscess
# Abdominal pain
--WBC now within normal limits
--CT Abdomen pelvis: CT findings compatible with diverticulitis within the anterolateral left upper pelvis, at the junction of the distal descending colon and the superior sigmoid colon. Significant adjacent inflammatory changes with evidence for a
small intramural abscess. Tiny foci of adjacent contained extraluminal air. No evidence for free air.Large heterogeneously enhancing mass, stable, and compatible with a stable large fibroid.There is air within the central endometrial canal,
uncertain etiology and significance. No adjacent bowel loop is seen that would suggest a focal fistula.Small umbilical hernia which contains fluid, stable from previous examination.
--Continue with IV Levaquin and Flagyl
--Diet advanced to clear liquids: Advance to full liquids for dinner if tolerates per colorectal
--d/c IV fluids
--Colorectal input appreciated
--Tylenol as needed for mild pain
#Hyponatremia ;Hypovolemic
--Resolved
# Prediabetic
--HbA1c 5.9
-- Advised to follow-up with PCP outpatient after discharge
DVT prophylaxis Lovenox
Full code
Anticipated Discharge: Within 24 hours
Subjective/Interval History
-
Date of Service: May 30, 2024
Reports mild abdominal soreness. Denies nausea vomiting and diarrhea
Objective Data
-
Labs:
Laboratory Results
05/30/24
05:07
WBC 10.2
Hgb 12.4
Hct 37.3
Plt Count 248
Sodium 137
Potassium 3.8
Chloride 102
Carbon Dioxide 25
BUN 8
Creatinine 0.7
Glucose 115 H
Calcium 8.4
Vital Signs:
Vital Signs
Temp Pulse Resp BP Pulse Ox
98.1 F 105 18 135/90 97
05/30/24 00:46 05/30/24 00:46 05/30/24 00:46 05/30/24 00:46 05/30/24 02:43
I&O
05/29/24 05/30/24 05/31/24
06:59 06:59 06:59
Intake Total 975 / 975
Balance 975 / 975
Review of Systems
-
History Source: Patient
Constitutional: Reports No Symptoms
EENT: Reports No Symptoms Reported
Respiratory: Reports No Symptoms
Abdomen/GI: Reports Abdominal Pain; Denies Nausea, Vomiting, Diarrhea, Constipated, Bloody Stools or Black Stools
Genitourinary: Reports No Symptoms
Neuro: Reports No Symptoms
Physical Exam
-
General: Well Developed, Well Nourished and No Apparent Distress
HEENT: Normocephalic and Atraumatic
Respiratory: Clear to Auscultation
Cardiac: Regular Rhythm
GI: Soft, Nontender and Nondistended
Musculoskeletal: No Clubbing
Skin: Warm and Dry
Neuro: Awake, Alert and Oriented
Psych: Calm
Data Reviewed
-
CT Scan: Report Reviewed by me
Labs: Labs Reviewed by me, Discussed with Physician and Discussed with Patient
[2024-05-30] MEDS: TYLENOL 650 MG PO (09:24)
[2024-05-30 09:45] LABS: Glycohemoglobin (HgbA1c) 5.9 % (4.0-5.6)
--- NOTE | 2024-05-30 10:26 | CON.CRS ---
Consultation
-
Date/Time Consultation Requested: 05/30/2024, 00:01
Date/Time Consultation Performed: 05/30/2024, 8:30
Requesting Provider: Haris Brown
Performing Provider: Tu Gallagher MD
Reason for Consultation: diverticulitis
Medical History
-
Chief Complaint: Abdominal pain
History of Present Illness:
73-year-old female presents to [facility] complaining of abdominal soreness after she ate some broccoli soup in [place]. The pain was so bad that led her to the ER. She denies nausea or vomiting. She denies fever. Her bowels are
typically constipated but she did have some diarrhea when this started. Her last colonoscopy was 2 years ago and she states it was 'okay'. There is no record available for review. Her WBC was 12.8 and she had a fever of 101.3 last night.
Initially she was tachycardic but this resolved. CT of the abdomen and pelvis showed diverticulitis within the anterolateral left upper pelvis, at the junction of the distal descending colon and the superior sigmoid colon. Significant adjacent
inflammatory changes with evidence for a small intramural abscess. Tiny foci of adjacent contained extraluminal air. No evidence for free air. She was started on IV antibiotics. Since admission she no longer has any abdominal pain. She states she
is hungry. She is having flatus. Her last bowel movement was 2 days ago. Given findings on CT, we have been consulted for surgical opinion.
Past Medical History
Past Medical History: Other (Prediabetes)
Past Surgical History: Gynecological (Tubal ligation)
Social History
Tobacco: Non-Smoker
Alcohol: None
Drug: None
Family History
Family History: Reviewed & Not Pertinent
Allergies / Home Medications
Allergy/AdvReac Type Severity Reaction Status Date / Time
methylene blue Allergy Unknown Verified 05/29/24 17:05
Penicillins Allergy Anaphylaxis Verified 05/29/24 17:05
Sulfa (Sulfonamide Allergy Anaphylaxis Verified 05/29/24 17:05
Antibiotics)
sulfamethoxazole Allergy Swelling Verified 05/29/24 17:05
[From Bactrim]
trimethoprim [From Bactrim] Allergy Swelling Verified 05/29/24 17:05
�Medication �Instructions �Recorded �Confirmed �Type
No Meds [No Current Medications] 05/29/24 05/29/24 History
Review of Systems
-
History Source: Patient
Abdomen/GI: Abdominal Pain
A 10 point review of systems was completed, and was negative except as per HPI.
Physical Exam
Vital Signs
Temp 99.1 F 05/30/24 07:25
Pulse 92 05/30/24 07:25
Resp Rate 18 05/30/24 07:25
Blood pressure 142/79 05/30/24 07:25
SaO2 100 05/30/24 07:25
05/29/24 05/30/2425
06:59 06:59 06:59
Actual Weight 81.221 kg
Body Mass Index (BMI) 33.9
Lab Results / Allergies
05/30/24 05:07
05/30/24 05:07
WBC 10.2 10^3/uL (4.8-10.8) 05/30/24 05:07
Hgb 12.4 g/dL (12.0-16.0) 05/30/24 05:07
Hct 37.3 % (37.0-47.0) 05/30/24 05:07
Plt Count 248 10^3/uL (130-400) 05/30/24 05:07
Abs Immat Gran (auto) 0.0 10^3/uL (0-0.05) 05/30/24 05:07
Neutrophils % 66.5 % (42.2-75.2) 05/30/24 05:07
Allergy/AdvReac Type Severity Reaction Status Date / Time
methylene blue Allergy Unknown Verified 05/29/24 17:05
Penicillins Allergy Anaphylaxis Verified 05/29/24 17:05
Sulfa (Sulfonamide Allergy Anaphylaxis Verified 05/29/24 17:05
Antibiotics)
sulfamethoxazole Allergy Swelling Verified 05/29/24 17:05
[From Bactrim]
trimethoprim [From Bactrim] Allergy Swelling Verified 05/29/24 17:05
Physical Exam
General: Well Developed, Well Nourished and No Apparent Distress
GI: Soft, Non Tender and Non Distended
Skin: Warm and Dry
Neuro: AO x 3
Psych: Calm
Data Reviewed
-
CT Scan: Image Personally Visualized and interpreted, Report Reviewed by me, Discussed with Physician and Discussed with Patient
Labs: Labs Reviewed by me, Discussed with Physician and Discussed with Patient
Old Records: Reviewed
Assessment / Plan
-
Assessment: 73-year-old female with no prior attacks of diverticulitis with abdominal pain for a day and found to have distal descending/sigmoid colon diverticulitis with an intramural abscess
Plan:
-Trend labs. WBC 10.2 today.
-Continue IV antibiotics
-No role for IR drainage with intramural abscess
-Start on a clear liquid diet. Advance to full liquids for dinner if tolerates.
-Up-to-date on colonoscopy
-No plans for surgery at this time. If patient worsens she may require a colectomy with colostomy creation. Discussed this with the patient.
--- NOTE | 2024-05-30 11:29 | CM ---
Patient seen at bedside.
IA completed
Lives in a multi-story home with boyfriend, 3 steps to enter
PLOF: Independent
Denies DME
Denies hh/rehab
Denies insecurities
PCP: Jareth Eugene
Pharmacy: [facility]
PLAN: Discharge when medically stable to home, currently no needs
[2024-05-30 15:20] VITALS: BP 132/84
[2024-05-30] MEDS: LOVENOX 40 MG SC (17:32)
[2024-05-30 23:20] VITALS: BP 128/87
[2024-05-31] MEDS: LEVAQUIN 150 IV (00:09)
[2024-05-31] MEDS: TYLENOL 650 MG PO ×2 (03:34→14:47)
[2024-05-31 03:39] VITALS: BP 136/85
[2024-05-31 06:47] LABS: % Basophils 0.3 % (0-2); % Eosinophils 3.2 % (0-6); % Immature Granulocytes 0.4 % (0-0.5); % Lymphocytes 19.6 % (20.5-51.1); % Monocytes 11.9 % (1.7-9.3); % Neutrophils 64.6 % (42.2-75.2); Absolute Eosinophils 0.2 10^3/uL (0-0.7); Absolute Lymphocytes 1.4 10^3/uL (1.2-3.4); Absolute Monocytes 0.8 10^3/uL (0.1-0.6); Absolute Neutrophils 4.6 10^3/uL (1.4-6.5); Hematocrit 36.5 % (37.0-47.0); Hemoglobin 12.4 g/dL (12.0-16.0); Mean Corpuscular Hgb 30.7 pg (27.0-31.0); Mean Corpuscular Volume 90.3 fL (81.0-99.0); Nucleated Red Blood Cells % 0 %; Platelet Count 246 10^3/uL (130-400); Red Blood Cell Count 4.04 10^6/uL (4.20-5.40); Red Cell Dist. Width 13.2 % (11.5-14.5); White Blood Cell Count 7.1 10^3/uL (4.8-10.8)
--- NOTE | 2024-05-31 07:07 | W.PN.HOSP.TC ---
Addendum entered and electronically signed by Dewey Crawford MD 05/31/24 23:30:
Attending Addendum-
I saw and evaluated the patient. I reviewed the resident�s note and agree with findings and plan as documented in the resident�s note. Sub: seen with present. No N/V abd pain some diarrhea abdominal pain resolving. jr diet no fever Full 12
point ROS reviewed and negative except as documented Exam: Vitals reviewed in chart GEN-NAD heart RRR lungs clear abd soft mild TTP LUQ no rebound guarding LE no edema
Plan:
# Sepsis secondary to acute complicated sigmoid diverticulitis with small IM abscess
- resolved
- leukocytosis resolved
- cont Levaquin and Flagyl day #3/7 days
- advanced diet - jr
- colorectal input appreciated- ctm no indication for surgery
#hyponatremia hypovolemic
- resolved s/p IVF
- BMP in am
#pre DM
-HbA1c- 5.9
#DVT prophylaxis
-Lovenox
#CODE status
-full code
Dispo- DC home
Time spent coordinating care, DC planning, review of DC plan of care with resident, transition of care, review of records, med rec/scripts sent electronically, consults, notes, d/w consultants/CRS, nursing, family, and CM�32 mins
Original Note:
Today's Communication/Plan
-
Advance diet
Discharge after clearance from colorectal on p.o. ABX
Assessment / Plan
Assessment / Plan
73-year-old female presents to [facility] complaining of abdominal soreness after she ate some broccoli soup.
# Sepsis secondary to acute complicated sigmoid diverticulitis/abscess
# Abdominal pain
--WBC now within normal limits
--CT Abdomen pelvis: CT findings compatible with diverticulitis within the anterolateral left upper pelvis, at the junction of the distal descending colon and the superior sigmoid colon. Significant adjacent inflammatory changes with evidence for a
small intramural abscess. Tiny foci of adjacent contained extraluminal air. No evidence for free air.Large heterogeneously enhancing mass, stable, and compatible with a stable large fibroid.There is air within the central endometrial canal,
uncertain etiology and significance. No adjacent bowel loop is seen that would suggest a focal fistula.Small umbilical hernia which contains fluid, stable from previous examination.
-- Continue with IV Levaquin and Flagyl day 3; will transition to p.o. once clearance from colorectal for discharge; potentially today
-- Patient able to tolerate full liquids without any complaints; advance to low residue if colorectal is okay with plan
--Colorectal input appreciated
--Tylenol as needed for mild pain
#Hyponatremia ;Hypovolemic
--Resolved
# Prediabetic
--HbA1c 5.9
-- Advised to follow-up with PCP outpatient after discharge
-- Encouraged low-carb diet
DVT prophylaxis Lovenox
Full code
Anticipated Discharge: Today
Subjective/Interval History
-
Date of Service: May 31, 2024
Offers no new complaints. Denies nausea/vomiting/abdominal pain/diarrhea.
Objective Data
-
Labs:
Laboratory Results
05/31/24
05:02
WBC 7.1
Hgb 12.4
Hct 36.5 L
Plt Count 246
Sodium Pending
Potassium Pending
Chloride Pending
Carbon Dioxide Pending
BUN Pending
Creatinine Pending
Glucose Pending
Calcium Pending
Vital Signs:
Vital Signs
Temp Pulse Resp BP Pulse Ox
98.5 F 91 16 136/85 97
05/30/24 23:20 05/30/24 23:20 05/30/24 23:20 05/31/24 03:39 05/30/24 23:42
I&O
05/30/24 05/31/24 06/01/24
06:59 06:59 06:59
Intake Total 975 / 5 1570 / 1570
Balance 975 / 975 1570 / 1570
Review of Systems
-
History Source: Patient
Constitutional: Reports No Symptoms
EENT: Reports No Symptoms Reported
Respiratory: Reports No Symptoms
Abdomen/GI: Denies Abdominal Pain, Nausea, Vomiting, Diarrhea, Constipated, Bloody Stools or Black Stools
Genitourinary: Reports No Symptoms
Neuro: Reports No Symptoms
Physical Exam
-
General: Well Developed, Well Nourished and No Apparent Distress
HEENT: Normocephalic and Atraumatic
Respiratory: Clear to Auscultation
Cardiac: Regular Rhythm
GI: Soft, Nontender and Nondistended
Musculoskeletal: No Clubbing
Skin: Warm and Dry
Neuro: Awake, Alert and Oriented
Psych: Calm
Data Reviewed
-
Labs: Labs Reviewed by me, Discussed with Physician and Discussed with Patient
[2024-05-31 07:16] LABS: Blood Urea Nitrogen 7 mg/dl (7-17); Calcium 8.4 mg/dl (8.4-10.2); Carbon Dioxide 25 mmol/L (22-30); Chloride 102 mmol/L (98-107); Estimated Creatinine Clearance 71 ml/min; Glucose 114 mg/dl (70-99); Potassium 3.9 mmol/L (3.5-5.1); Sodium 137 mmol/L (135-145); eGFR > 60.00
[2024-05-31] MEDS: FLAGYL 500 MG 100 IV (07:29)
[2024-05-31 08:28] VITALS: BP 140/86
--- NOTE | 2024-05-31 12:27 | PTCARENOTE ---
patient called this RN to ask if she could have Ativan 0.5 mg PO for her neck pain that she takes at home. MD was notified. order for Ativan one time dose placed. When this RN came to administer the medication, patient said she would like to keep it
on her bedside table and take it at the later time. RN explained, that this isnt the safe practice to administer medications and if the patient does not want to take the Ativan, she could ask for it later and it will be offered to her then.
--- NOTE | 2024-05-31 12:30 | PTCARENOTE ---
patient called RN to her room asking regarding regular diet. this RN explained the diet order for low residue diet and provided education on menu options. patient stated she wants to be on regular diet and requested Dr. Gallagher phone number. Office
number and hours were provided to the patient.
--- NOTE | 2024-05-31 12:37 | CM ---
Chart reviewed. Met with pt
Poss d/c today
has transport home
Given IMM
Plan - anticipate home no needs
[2024-05-31 13:31] VITALS: BP 144/89
[2024-05-31 14:39] LABS: Glucose - Point of Care 102 mg/dl (70-99)
--- NOTE | 2024-05-31 17:25 | W.DCSUMMARY ---
Addendum entered and electronically signed by Dewey Crawford MD 05/31/24 23:30:
Read, reviewed, and agree. See same day progress note for additional details.
Hernandez Crawford MD
Original Note:
Documented by User: Jigar Schulz MD, Resident 05/31/24 17:38
Discharge Summary
Discharge Data
Date of Admission: 05/29/24
Date of Discharge: 05/31/24
-
Pending Results: No
Hospital Course
Discharging Physician : Jigar Schulz MD ; Dewey Crawford MD
Disposition : Home
Primary care physician : Jareth Eugene
Principal Discharge diagnosis : Sepsis secondary to acute complicated sigmoid diverticulitis with small IM abscess, Hypovolemic Hyponatremia,
Chronic Discharge diagnosis : Pre diabetic
Hospital Course : 73-year-old female with past medical history significant for prediabetes presented to the emergency department with complaints of abdominal soreness after she ate broccoli soup. She denied nausea, vomiting and fever before coming
to the hospital.
1.Sepsis secondary to acute complicated sigmoid diverticulitis/abscess
She denied any history of previous similar episode. In the ER her WBC count was found to be 12.8 and temperature of 101.3. And she was tachycardic as well. CT abdomen pelvis was done; report below. Given the diagnosis of sepsis likely due to
acute complicated sigmoid diverticulitis seen on the CT she was admitted to [facility] for further treatment. She received IV Levaquin and Flagyl in the ER which was later continued while she was in the hospital. She was initially made n.p.o.
however later transition to clear liquids and eventually to full liquids. She tolerated the diet without any pain. Even though she had intramural abscess however there is no role for interventional radiology to drain that abscess. She had last
colonoscopy 2 years ago which is up-to-date. Colorectal surgery was consulted and no surgical option was recommended. She was continued on antibiotics which were later transitioned to p.o. antibiotics upon discharge. Her white cell count trended
down to normal with medications. She was advised to follow-up with GI in few weeks. She was also advised to follow-up with PCP within a 1 week time.
2. Hypovolemic hyponatremia
During her workup she was found to have hyponatremia with sodium level of 132 which was later improved with IV fluids. No recommendation at the time of discharge.
3. Prediabetic
Upon routine blood work she was found to have elevated blood glucose mostly in 110s. HbA1c was checked which came out to be 5.9. She was encouraged for lifestyle and dietary modification. No medications started for this reason.
She was discharged home in medically stable condition and E scripts for antibiotics sent to the pharmacy.
Important imaging findings : CT Abd/Pel (IV only)
CT findings compatible with diverticulitis within the anterolateral left upper pelvis, at the junction of the distal descending colon and the superior sigmoid colon. Significant adjacent inflammatory changes with evidence for a small intramural
abscess. Tiny foci of adjacent contained extraluminal air. No evidence for free air.
Large heterogeneously enhancing mass, stable, and compatible with a stable large fibroid.
There is air within the central endometrial canal, uncertain etiology and significance. No adjacent bowel loop is seen that would suggest a focal fistula.
Small umbilical hernia which contains fluid, stable from previous examination.
Discharge Plan
-
Patient Disposition: Home (Routine Discharge)
Discharge Diagnosis/Procedures: Sepsis secondary to acute complicated sigmoid diverticulitis with small IM abscess, Hypovolemic Hyponatremia, Pre diabetic
Condition: Good
Diet: Regular
Activity: No restrictions
Driving Restrictions: As prior to admission
Bathing Restrictions: None
Referrals:
Jareth Eugene DO [Family Provider] - in less than 1 week
Additional Discharge Medication Instructions: Take levofloxacin 750 mg 1 tablet by mouth daily for next 6 days
take metronidazole twice daily by mouth for next 6 days.
Follow up with pcp within 1 week.
Follow up with outpatient GI within 4 weeks recommended.
Prescriptions:
New
levofloxacin 750 mg tablet
750 mg PO DAILY Qty: 6 0RF
metronidazole 500 mg tablet
500 mg PO BID Qty: 12 0RF
Discharge Orders:
Discharge Patient (As Directed); Ordered 05/31/24
Ordered By: Jigar Schulz
Discharge Date and Time
Discharge Date/Time: 05/31/24 15:34
Print Language: FRISIAN

Documented by User: Dewey Crawford MD 05/31/24 23:27
Discharge Summary
Discharge Data
Date of Admission: 05/29/24
Date of Discharge: 05/31/24
Discharge Plan
-
Patient Disposition: Home (Routine Discharge)
Discharge Diagnosis/Procedures: Sepsis secondary to acute complicated sigmoid diverticulitis with small IM abscess, Hypovolemic Hyponatremia, Pre diabetic
Condition: Good
Diet: Regular
Activity: No restrictions
Driving Restrictions: As prior to admission
Bathing Restrictions: None
Referrals:
Jareth Eugene DO [Family Provider] - in less than 1 week
Additional Discharge Medication Instructions: Take levofloxacin 750 mg 1 tablet by mouth daily for next 6 days
take metronidazole twice daily by mouth for next 6 days.
Follow up with pcp within 1 week.
Follow up with outpatient GI within 4 weeks recommended.
Prescriptions:
New
levofloxacin 750 mg tablet
750 mg PO DAILY Qty: 6 0RF
metronidazole 500 mg tablet
500 mg PO BID Qty: 12 0RF
Discharge Orders:
Discharge Patient (As Directed); Ordered 05/31/24
Ordered By: Jigar Schulz
Discharge Date and Time
Discharge Date/Time: 05/31/24 15:34
Print Language: FRISIAN
--- NOTE | 2024-05-31 20:58 | W.PN.CRS1 ---
Today's Communication / Plan
-
- as below
Assessment/Plan
-
73-year-old female who presented with first episode of acute diverticulitis, treated nonoperatively
AFVSS
WBC 7.1
� Okay to advance to low residue diet
� Continue DVT PPx
� Pain control
� Continue Levaquin/Flagyl for 7 to 10 days
� Appreciate hospitalist
� Okay for DC from colorectal standpoint
Subjective Data
Subjective Data
Date of Service: May 31, 2024 (delayed entry of note; patient seen and examined around 9:00am)
No issues overnight, denies any nausea/vomiting. Pain has essentially resolved. Passing flatus, no BMs yet. Wants to get home today so she can get to the bank before 5 PM.
Objective Data
-
Vital Signs
Temp Pulse Resp BP Pulse Ox
98.1 F 90 18 144/89 97
05/31/24 08:28 05/31/24 13:31 05/31/24 13:31 05/31/24 13:31 05/30/24 23:42
Intake & Output
05/30/24 05/31/24 06/01/24
06:59 06:59 06:59
Intake Total 975 / 975 1570 / 1570
Balance 975 / 975 1570 / 1570
Intake:
Oral fluids 1320 / 1320
IV fluids (Total) 875 / 875
IV piggybacks 100 / 100 250 / 250
Other:
Number of approximated SMALL 2
amounts of urine
Number of approximated MODERATE 2 3
amounts of urine
Lab Results
05/31/24 05:02
05/31/24 05:02
Physical Exam
-
General: No Acute Distress and AOx3
Abdomen: Soft, Non Distended, Non Tender, No Guarding, No Rebound and Other (Palpable mass within the lower abdomen)
Skin: Warm and Dry
== END 2024-05-31 15:34 | disposition home or self-care (01) | DRG 872 ==
LOC: 2 SOUTH 23:57
PROVIDERS: Physician Assistant; Registered Nurse; ADMITTING PHYSICIAN Internal Medicine; ATTENDING PHYSICIAN Family Medicine; EMERGENCY PHYSICIAN Student in an Organized Health Care Education/Training Program; FAMILY PHYSICIAN Family Medicine; OTHER PHYSICIAN Surgery
DX: A41.9 Sepsis, unspecified organism (principal); K57.32 Diverticulitis of large intestine without perforation or abscess without bleeding; K57.20 Diverticulitis of large intestine with perforation and abscess without bleeding; E87.1 Hypo-osmolality and hyponatremia; E86.1 Hypovolemia; R73.03 Prediabetes; K42.9 Umbilical hernia without obstruction or gangrene; I10 Essential (primary) hypertension; Z88.0 Allergy status to penicillin; Z88.2 Allergy status to sulfonamides; D25.9 Leiomyoma of uterus, unspecified; K59.00 Constipation, unspecified; Z88.1 Allergy status to other antibiotic agents
CPT/HCPCS: 74177; 80048; 80053; 81003; 81015; 82962; 83036; 85025; 96365; 99285; Q9967

== ENCOUNTER 2024-06-24 16:49 | Emergency (ER) | payer OTHER, SELFPAY ==
[2024-06-24 16:51] VITALS: BP 148/98
[2024-06-24 17:26] VITALS: BMI 31.6
[2024-06-24 17:30] VITALS: BP 127/73
--- NOTE | 2024-06-24 17:35 | ED.GENMED ---
History of Present Illness
General
Chief Complaint: Musculo-Skeletal Complaint
Source: patient
Exam Limitations: none
Time Seen by Provider: 06/24/24 17:08
Nursing documentation reviewed up to this point in time: agreed with
History of Present Illness
History of Present Illness:
73-year-old female presents Emergency Department due to spasms in her arms and legs this morning. She took half a milligram Ativan, which she takes 3 times a week for her discomfort. She denies any discomfort at this time. She denies chest pain.
Past History
Past History
ED Past Medical History: HTN and NIDDM
ED Past Surgical History: Gynecological (Tubal ligation) and Other (Ear tubes)
Social History
Tobacco: Non-smoker
Alcohol: None
Personal: Partner
Living: with roommate
Employment: Not employed
Review of Systems
Review of Systems
Allergies reviewed?: Yes
All Other Systems: Not applicable
Constitutional: Reports no symptoms
EENT: Reports no symptoms
Respiratory: Reports no symptoms
Cardiac: Reports no symptoms
ABD/GI: Reports no symptoms
: Reports no symptoms
Musculoskeletal: Reports muscle pain and muscle stiffness
Skin: Reports no symptoms
Neurological: Reports no symptoms
Endocrine: Reports no symptoms
Hematologic/Lymphatic: Reports no symptoms
Psychiatric: Reports no symptoms
Phy Exam
Physical Exam
Physical Exam:
Physical Exam
General: no apparent distress, not acutely ill
Neck: supple. no meningeal signs. normal posterior pharynx
Heart: s1/s2 regular rate and rhythm, no murmur. equal radial
pulses.
HEENT: Pupils equal round reactive to light, EOMI
Lungs: no acute respiratory distress. clear bilaterally
Abdomen: normal bowel sounds. not tender. no CVAT
Neuro: alert and oriented. no focal neurological deficits cranial nerves II through XII intact
Skin: no rash
Psychiatric: well kept. interactive and cooperative
Extremities: no edema. no calf tenderness. negative homans. good distal pulses
Course
Orders/Labs/Results
Orders:
Orders
06/24/24 17:24
IV Insert/Care/Rem.- Treatment PRN
06/24/24 17:25
Electrocardiogram (*1) Urgent
Reason for Study: Fatigue / Weakness
EKG- Treatment ONCE
06/24/24 17:28
Complete Blood Count/With Diff Urgent
Comprehensive Metabolic Panel Urgent
Magnesium Urgent
06/24/24 18:56
Add On- LAB Urgent
Tests Added?: vitamin d 25 OH
Abnormal Lab Results
06/24/24
17:28
Absolute Monos (auto) 0.7 H 10^3/uL
(0.1-0.6)
Monocytes % 13.1 H %
(1.7-9.3)
Glucose 105 H mg/dl
(70-99)
06/24/24 17:28
06/24/24 17:28
Vital Signs
Initial and Last Documented VS:
Initial Vital Signs
Temp Pulse Resp BP Pulse Ox
98.6 F 116 18 148/98 98
06/24/24 16:51 06/24/24 16:51 06/24/24 16:51 06/24/24 16:51 06/24/24 16:51
Last Documented Vital Signs
Temp Pulse Resp BP Pulse Ox
98.6 F 116 18 122/77 96
06/24/24 16:51 06/24/24 16:51 06/24/24 16:51 06/24/24 18:00 06/24/24 18:45
MDM/Problems Addressed
Differential Diagnosis Includes:
Electrolyte dysfunction, muscle spasms
MDM/Problems Addressed:
73-year-old female with muscle spasms, unclear etiology. Normal electrolytes. No spasms at this time. Stable for discharge.
*Pulse Oximetry
Patient hypoxic: no
*Critical Care Note
Total Time (30-74mins, 75-104mins- exclusive of procedures): Not Applicable
Patient Management
Social determinants of health affecting care: Living situation and Strong social support
Escalation/DeEscalation of care consider admission/obs:
admit not indicated
ED Attending Note
-
Portions of this chart may have been created with voice recognition software.� Occasional wrong word or��sound alike� substitutions may have occurred due to the inherent limitations of voice recognition software.
Discharge Plan
Departure
Patient Disposition: Home (Routine Discharge)
Date of Disposition: 06/24/24
Time of Disposition: 19:01
Patient with high blood pressure during this ER visit?: Yes
Condition: Good
Discharge Problem:
Muscle spasm
Instructions: Muscle Spasm ED, BLOOD PRESSURE
Prescriptions:
No Action
levofloxacin 750 mg tablet
750 mg PO DAILY Qty: 6 0RF
metronidazole 500 mg tablet
500 mg PO BID Qty: 12 0RF
Referrals:
Jareth Eugene DO [Family Provider] - Call in 1-3 days for appt
Interventions
Interventions:
*Risk Screen - Suicide Last Done: 06/24/24 16:51
*General Assessment Last Done: 06/24/24 16:51
*Neglect/Abuse Screening Last Done: 06/24/24 16:51
*ED- Fall Risk Assessment Last Done: 06/24/24 17:26
*ED COVID-19 Vaccine History Last Done: 06/24/24 16:51
ED-Musculoskeletal Assessment Last Done: 06/24/24 17:26
Discharge Date and Time
Print Language: CHINESE
[2024-06-24 17:50] LABS: % Basophils 0.6 % (0-2); % Eosinophils 4.6 % (0-6); % Lymphocytes 39.5 % (20.5-51.1); % Monocytes 13.1 % (1.7-9.3); % Neutrophils 42.2 % (42.2-75.2); Absolute Eosinophils 0.3 10^3/uL (0-0.7); Absolute Lymphocytes 2.2 10^3/uL (1.2-3.4); Absolute Monocytes 0.7 10^3/uL (0.1-0.6); Absolute Neutrophils 2.3 10^3/uL (1.4-6.5); Hematocrit 41.6 % (37.0-47.0); Hemoglobin 14.2 g/dL (12.0-16.0); Mean Corp Hgb Conc. 34.1 g/dL (33.0-37.0); Mean Corpuscular Hgb 30.5 pg (27.0-31.0); Mean Corpuscular Volume 89.3 fL (81.0-99.0); Mean Platelet Volume 9.7 fL (7.4-10.4); Nucleated Red Blood Cells % 0 %; Platelet Count 233 10^3/uL (130-400); Red Blood Cell Count 4.66 10^6/uL (4.20-5.40); Red Cell Dist. Width 13.5 % (11.5-14.5); White Blood Cell Count 5.4 10^3/uL (4.8-10.8)
[2024-06-24 18:00] VITALS: BP 122/77
[2024-06-24 18:00] LABS: ALT (SGPT) 15 U/L (0-35); AST (SGOT) 21 U/L (14-36); Albumin 4.1 g/dl (3.5-5.0); Alkaline Phosphatase 65 U/L (38-126); Blood Urea Nitrogen 16 mg/dl (7-17); Calcium 9.7 mg/dl (8.4-10.2); Carbon Dioxide 27 mmol/L (22-30); Chloride 103 mmol/L (98-107); Estimated Creatinine Clearance 54 ml/min; Glucose 105 mg/dl (70-99); Magnesium 2.1 mg/dl (1.6-2.3); Potassium 4.4 mmol/L (3.5-5.1); Sodium 138 mmol/L (135-145); Total Bilirubin 0.4 mg/dl (0.2-1.3); Total Protein 7.4 g/dl (6.3-8.2); eGFR > 60.00
[2024-06-24 19:09] VITALS: BP 132/82
[2024-06-24 19:54] LABS: Vitamin D, 25-OH*** 20.4 ng/mL (30-80)
== END 2024-06-24 19:31 | disposition home or self-care (01) ==
LOC: EMR 16:49
PROVIDERS: EMERGENCY PHYSICIAN Emergency Medicine; FAMILY PHYSICIAN Family Medicine
DX: M62.838 Other muscle spasm (principal); R53.83 Other fatigue; I10 Essential (primary) hypertension; E11.9 Type 2 diabetes mellitus without complications
CPT/HCPCS: 99284; 80053; 82306; 83735; 85025; 93005

== ENCOUNTER 2024-07-29 02:37 | Emergency (ER) | payer OTHER, SELFPAY ==
[2024-07-29 02:38] VITALS: BP 134/94
[2024-07-29 02:54] VITALS: BP 133/85
[2024-07-29 02:55] VITALS: BMI 31.8
--- NOTE | 2024-07-29 03:14 | ED.GENMED ---
History of Present Illness
General
Chief Complaint: Blood Pressure Problem
Source: patient and previous hospital records (Hospitalization May of this year for acute diverticulitis. ED visit 1 month ago with complaints of muscle spasms of arms and legs. Unremarkable laboratory studies, unremarkable ED evaluation.)
Exam Limitations: none
Time Seen by Provider: 07/29/24 02:52
Nursing documentation reviewed up to this point in time: agreed with
History of Present Illness
History of Present Illness:
This is a 73-year-old woman with history of prediabetes, labile blood pressure, anxiety, vitamin D deficiency. She states she awoke with complaints of palpitations feeling that her heart was beating somewhat rapidly and somewhat hard but denies
skipping beats, denies chest pain, no shortness of breath, no diaphoresis, no dizziness nor lightheadedness. She has been suffering with some posterior neck pain, muscle spasms, ongoing issue for the past month or so and has been taking lorazepam
for muscle spasms but has been attempting to discontinue the lorazepam due to fear of addiction. She stopped her lorazepam 3 days ago.
Noted to be mildly hypertensive during PCP office visits in March with systolic blood pressure in the 130s to 140s. Also found to have hemoglobin A1c of 6.3. Was prescribed lisinopril 2.5 mg but patient has not started this as yet and admits
that she has not followed up with her PCP.
With attempting to stop her lorazepam she has recently been prescribed BuSpar 5 mg to be taken as needed. She has not started BuSpar as well.
When she awoke this morning with palpitation she checked her blood pressure and was concerned when her systolic blood pressure was 145. She denies headache, mild posterior neck pain, intermittent muscle spasms, nonradiating, worse at nighttime has
been an ongoing issue over the past 4 to 6 weeks.
Hospitalized here May of this year for acute diverticulitis. Resolved uneventfully.
ED visit 1 month ago with complaints of muscle spasms of her arms and legs. Unremarkable laboratory studies, unremarkable ED visit and no muscle spasms during ED visit.
Past History
Past History
ED Past Medical History: HTN, NIDDM and Psychiatric (Anxiety)
ED Past Surgical History: Gynecological (Tubal ligation) and Other (Ear tubes)
Social History
Tobacco: Non-smoker
Alcohol: None
Personal: Partner
Living: with roommate
Employment: Not employed
Family History
Family History: Other (Noncontributory)
Phy Exam
Physical Exam
Physical Exam:
GENERAL: 73-year-old woman appears somewhat younger than stated age, bright and alert, pleasant, appears in no acute distress. Easily communicative.
EYE: pupils equal and reactive. anicteric
NECK: Supple, nontender, no meningismus, no significant adenopathy. Full range of motion without difficulty nor pain.
ENT: posterior pharynx is clear, oral mucosa is moist. TM clear b/l, nares patent.
CARDIAC: Regular rate and rhythm. no murmur.
LUNGS: Clear breath sounds bilaterally, no acute respiratory distress, no wheezes/rales/rhonchi
ABDOMEN: Soft, nondistended, without focal tenderness, normoactive BS.
NEUROLOGICAL: Alert and oriented x3, no focal neuro deficits. Gait is steady.
SKIN: Warm and dry, normal color, skin intact. No rash.
MUSCULOSKELETAL: No C/C/E. peripheral pulses are full and equal b/l. No palpable tenderness.
PSYCH: Normal and appropriate interaction.
Course
Orders/Labs/Results
Orders:
Orders
07/29/24 02:56
Electrocardiogram (*1) Urgent
Reason for Study: Palpitations
EKG- Treatment ONCE
07/29/24 02:57
Cardiac Monitoring- Treatment ONCE
07/29/24 03:15
Basic Metabolic Panel Urgent
Complete Blood Count/With Diff Urgent
Abnormal Lab Results
07/29/24
03:15
Monocytes % 10.0 H %
(1.7-9.3)
BUN 23 H mg/dl
(7-17)
Glucose 109 H mg/dl
(70-99)
07/29/24 03:15
07/29/24 03:15
Vital Signs
Initial and Last Documented VS:
Initial Vital Signs
Temp Pulse Resp BP Pulse Ox
98.2 F 85 18 134/94 100
07/29/24 02:38 07/29/24 02:38 07/29/24 02:38 07/29/24 02:38 07/29/24 02:38
Last Documented Vital Signs
Temp Pulse Resp BP Pulse Ox
98.2 F 80 17 126/77 99
07/29/24 02:38 07/29/24 04:30 07/29/24 04:30 07/29/24 04:00 07/29/24 04:30
MDM/Problems Addressed
Differential Diagnosis Includes:
Patient presents with complaints of palpitations, elevated blood pressure in the 140s.
Has had similar palpitations in the past sometime ago. Concern for tachy-arrhythmia.
Less likely electrolyte abnormality, anemia. Unremarkable laboratory studies just a month ago. Will recheck for completeness sake.
Initial BP 134/94, has improved to 133/85.
Monitor shows normal sinus rhythm with rare unifocal PVC.
Will check EKG, continue flaker operator.
Chronic conditions affecting care: DM (Prediabetes), HTN (Borderline hypertension) and Psychiatric illness (Anxiety)
*Pulse Oximetry
Patient hypoxic: no
*EKG
Interpreted by ED Provider?: Yes
Interpretation: normal
Comparison EKG: no changes (Unchanged from previous June 24, 2024 safer heart rate has decreased from 92 to now 78)
Rate: normal
Rhythm: sinus
[place]: normal axis
Interval: normal interval
QRS Pattern: normal QRS
Ischemia: no ischemia
*Turf Manager Interpretation
Rate: normal
Interpretation: normal
Rhythm: sinus and PVC's (Rare unifocal PVC)
*Critical Care Note
Total Time (30-74mins, 75-104mins- exclusive of procedures): Not Applicable
Update Note
Update Note:
04:40
Patient resting comfortably.
Monitor showing normal sinus rhythm.
Blood pressure 122/77.
Labs are unremarkable save for minimally elevated BUN. Recommend increasing clear liquids on a daily basis.
Patient does admit to moderate worry, anxiety regarding her health.
Encouraged prompt follow-up with PCP for BP recheck and to further discuss her anxiety/worry issues.
ED Attending Note
-
Portions of this chart may have been created with voice recognition software.� Occasional wrong word or��sound alike� substitutions may have occurred due to the inherent limitations of voice recognition software.
Discharge Plan
Departure
Patient Disposition: Home (Routine Discharge)
Date of Disposition: 07/29/24
Time of Disposition: 04:38
Patient with high blood pressure during this ER visit?: No
Condition: Good
Discharge Problem:
Heart palpitations, Anxiety about health
Instructions: Palpitations, Anxiety in adults - ED discharge instructions
Prescriptions:
No Action
levofloxacin 750 mg tablet
750 mg PO DAILY Qty: 6 0RF
metronidazole 500 mg tablet
500 mg PO BID Qty: 12 0RF
Referrals:
Blake Louis MD [Family Provider] - Call in 1-3 days for appt
Byron Kennedy MD [Active] -
Interventions
Interventions:
*Risk Screen - Suicide Last Done: 07/29/24 02:38
*General Assessment Last Done: 07/29/24 02:38
*Neglect/Abuse Screening Last Done: 07/29/24 02:38
*ED- Fall Risk Assessment Last Done: 07/29/24 02:38
*ED COVID-19 Vaccine History Last Done: 07/29/24 02:38
ED- Cardiac Assessment Last Done: 07/29/24 02:55
ED- Neurological Assessment Last Done: 07/29/24 02:55
ED- Pulmonary Assessment Last Done: 07/29/24 02:55
Discharge Date and Time
Print Language: YI
[2024-07-29 03:28] VITALS: BP 141/90
[2024-07-29 03:32] LABS: % Basophils 0.7 % (0-2); % Eosinophils 4.3 % (0-6); % Immature Granulocytes 0.5 % (0-0.5); % Lymphocytes 33.9 % (20.5-51.1); % Neutrophils 50.6 % (42.2-75.2); Absolute Eosinophils 0.3 10^3/uL (0-0.7); Absolute Monocytes 0.6 10^3/uL (0.1-0.6); Hematocrit 39.9 % (37.0-47.0); Hemoglobin 13.6 g/dL (12.0-16.0); Mean Corp Hgb Conc. 34.1 g/dL (33.0-37.0); Mean Corpuscular Hgb 30.8 pg (27.0-31.0); Mean Corpuscular Volume 90.5 fL (81.0-99.0); Mean Platelet Volume 9.7 fL (7.4-10.4); Nucleated Red Blood Cells % 0 %; Platelet Count 239 10^3/uL (130-400); Red Blood Cell Count 4.41 10^6/uL (4.20-5.40); Red Cell Dist. Width 13.3 % (11.5-14.5)
[2024-07-29 03:47] LABS: Blood Urea Nitrogen 23 mg/dl (7-17); Calcium 9.4 mg/dl (8.4-10.2); Carbon Dioxide 26 mmol/L (22-30); Chloride 106 mmol/L (98-107); Estimated Creatinine Clearance 60 ml/min; Glucose 109 mg/dl (70-99); Potassium 4.4 mmol/L (3.5-5.1); Sodium 141 mmol/L (135-145); eGFR > 60.00
[2024-07-29 04:00] VITALS: BP 126/77
== END 2024-07-29 04:50 | disposition home or self-care (01) ==
LOC: EMR 02:37
PROVIDERS: EMERGENCY PHYSICIAN Emergency Medicine; FAMILY PHYSICIAN Internal Medicine
DX: R00.2 Palpitations (principal); F41.9 Anxiety disorder, unspecified; R51.9 Headache, unspecified; R73.03 Prediabetes; E55.9 Vitamin D deficiency, unspecified; M54.2 Cervicalgia; M62.838 Other muscle spasm; K57.92 Diverticulitis of intestine, part unspecified, without perforation or abscess without bleeding; I10 Essential (primary) hypertension; Z88.1 Allergy status to other antibiotic agents; Z88.0 Allergy status to penicillin; Z88.2 Allergy status to sulfonamides; Z88.8 Allergy status to other drugs, medicaments and biological substances
CPT/HCPCS: 99283; 80048; 85025; 93005

== ENCOUNTER 2024-09-02 19:48 | Emergency (ER) | payer OTHER, SELFPAY ==
[2024-09-02 19:53] VITALS: BP 158/96
[2024-09-02 20:10] VITALS: BP 150/128
[2024-09-02 20:11] VITALS: BP 152/91
--- NOTE | 2024-09-02 20:39 | ED.GENMED ---
History of Present Illness
General
Chief Complaint: Breathing Problem
Source: patient
Time Seen by Provider: 09/02/24 20:13
History of Present Illness
History of Present Illness:
73-year-old female presents emerged with complaining of frontal headache, nasal congestion, pain behind her eyes. Symptoms present for 5 days but worse today. No fever. Patient states this is how she feels when she gets a sinus infection. She
denies any focal weakness numbness or tingling. 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 She does feel like her vision may be a bit blurry.
Past History
Past History
ED Past Medical History: HTN, NIDDM and Psychiatric (Anxiety)
ED Past Surgical History: Gynecological (Tubal ligation) and Other (Ear tubes)
Social History
Tobacco: Non-smoker
Alcohol: None
Personal: Partner
Living: with roommate
Employment: Not employed
Family History
Family History: Other (Noncontributory)
Phy Exam
Physical Exam
Physical Exam:
General: Awake, Alert, Oriented X3. No acute distress.
Vitals: unremarkable
Head: Atraumatic, mild tenderness to percussion frontal sinuses bilaterally, no significant tenderness over the maxillary sinuses.
Eyes: Pupils equal, EOMI, intraocular pressure 18 on the right, 12 on the left
Throat: Airway intact, no exudates
Neck: Trachea midline
Lungs: Clear and equal b/l
Heart: Regular rate, no murmurs
Abd: Soft, Nontender, No pulsatile mass
Neuro: Cranial nerves intact, muscle strength equal bilaterally, cerebellar exam normal
Skin: Warm, dry, no rash
Extremities: pulses equal b/l, no edema
Scores
Heart Failure Risk
Heart Failure Risk Score: Not Applicable
Course
Orders/Labs/Results
Orders:
Orders
09/02/24 20:40
Ibuprofen [Motrin] 400 mg PO NOW STA
Vital Signs
Initial and Last Documented VS:
Initial Vital Signs
Temp Pulse Resp BP Pulse Ox
98.1 F 88 18 158/96 96
09/02/24 19:53 09/02/24 19:53 09/02/24 19:53 09/02/24 19:53 09/02/24 19:53
Last Documented Vital Signs
Temp Pulse Resp BP Pulse Ox
98.1 F 73 16 150/93 98
09/02/24 19:53 09/02/24 21:20 09/02/24 21:20 09/02/24 21:00 09/02/24 21:15
MDM/Problems Addressed
Differential Diagnosis Includes:
Tension headache, glaucoma exacerbation, sinusitis
MDM/Problems Addressed:
Patient presents with a headache. Considered tension headache. However patient is quite insistent that this is how she feels when she gets a sinus infection. She is insistent that she needs antibiotics. Prescription for Zithromax sent to her
pharmacy.
*Pulse Oximetry
Patient hypoxic: no
*Critical Care Note
Total Time (30-74mins, 75-104mins- exclusive of procedures): Not Applicable
ED Attending Note
-
Portions of this chart may have been created with voice recognition software.� Occasional wrong word or��sound alike� substitutions may have occurred due to the inherent limitations of voice recognition software.
Discharge Plan
Departure
Patient Disposition: Home (Routine Discharge)
Date of Disposition: 09/02/24
Time of Disposition: 20:40
Patient with high blood pressure during this ER visit?: Yes
Condition: Good
Discharge Problem:
Frontal headache, Acute frontal sinusitis
Instructions: Headaches in adults, Sinusitis in adults - ED discharge instructions
Prescriptions:
New
azithromycin [Zithromax] 250 mg tablet
250 mg PO DAILY Qty: 6 0RF
No Action
levofloxacin 750 mg tablet
750 mg PO DAILY Qty: 6 0RF
metronidazole 500 mg tablet
500 mg PO BID Qty: 12 0RF
Activity Restrictions/Additional Instructions:
You should use Flonase nasal spray which you can get over the counter
Interventions
Interventions:
*Risk Screen - Suicide Last Done: 09/02/24 19:53
*General Assessment Last Done: 09/02/24 19:53
*Neglect/Abuse Screening Last Done: 09/02/24 19:53
*ED- Fall Risk Assessment Last Done: 09/02/24 21:20
*ED COVID-19 Vaccine History Last Done: 09/02/24 19:53
*Nursing Disposition Last Done: 09/02/24 21:20
ED- Cardiac Assessment Last Done: 09/02/24 20:13
ED- Pulmonary Assessment Last Done: 09/02/24 20:13
Discharge Date and Time
Discharge Date/Time: 09/02/24 21:28
Print Language: KHMER
[2024-09-02 21:00] VITALS: BP 150/93
== END 2024-09-02 21:28 | disposition home or self-care (01) ==
LOC: EMR 19:48
PROVIDERS: EMERGENCY PHYSICIAN Emergency Medicine; FAMILY PHYSICIAN Internal Medicine
DX: J01.10 Acute frontal sinusitis, unspecified (principal); E11.9 Type 2 diabetes mellitus without complications; I10 Essential (primary) hypertension
CPT/HCPCS: 99283

== ENCOUNTER 2024-09-17 20:23 | Emergency (ER) | payer OTHER, SELFPAY ==
[2024-09-17 20:25] VITALS: BP 185/111
[2024-09-17 20:47] LABS: Hematocrit 40.9 % (37.0-47.0); Mean Corp Hgb Conc. 34.2 g/dL (33.0-37.0); Mean Corpuscular Hgb 30.6 pg (27.0-31.0); Mean Corpuscular Volume 89.3 fL (81.0-99.0); Mean Platelet Volume 9.4 fL (7.4-10.4); Platelet Count 273 10^3/uL (130-400); Red Blood Cell Count 4.58 10^6/uL (4.20-5.40); Red Cell Dist. Width 13.2 % (11.5-14.5); White Blood Cell Count 7.5 10^3/uL (4.8-10.8)
[2024-09-17 20:54] VITALS: BP 178/100
[2024-09-17 21:03] LABS: ALT (SGPT) 15 U/L (0-35); AST (SGOT) 21 U/L (14-36); Albumin 4.6 g/dl (3.5-5.0); Alkaline Phosphatase 74 U/L (38-126); Blood Urea Nitrogen 18 mg/dl (7-17); Calcium 9.3 mg/dl (8.4-10.2); Carbon Dioxide 23 mmol/L (22-30); Chloride 109 mmol/L (98-107); Glucose 104 mg/dl (70-99); Sodium 139 mmol/L (135-145); Total Bilirubin 0.5 mg/dl (0.2-1.3); eGFR > 60.00
[2024-09-17 21:10] LABS: % Basophils 0.7 % (0-2); % Eosinophils 4.5 % (0-6); % Immature Granulocytes 0.1 % (0-0.5); % Lymphocytes 51.9 % (20.5-51.1); % Neutrophils 33.8 % (42.2-75.2); Absolute Basophils 0.1 10^3/uL (0-0.2); Absolute Eosinophils 0.3 10^3/uL (0-0.7); Absolute Lymphocytes 3.9 10^3/uL (1.2-3.4); Absolute Monocytes 0.7 10^3/uL (0.1-0.6); Absolute Neutrophils 2.5 10^3/uL (1.4-6.5); Nucleated Red Blood Cells % 0 %
[2024-09-17 21:15] LABS: Troponin I < 0.012 ng/ml
== END 2024-09-17 20:55 | disposition left against medical advice (07) ==
LOC: EMR 20:23
PROVIDERS: Emergency Medicine; EMERGENCY PHYSICIAN Emergency Medicine
DX: R03.0 Elevated blood-pressure reading, without diagnosis of hypertension (principal); Z53.21 Procedure and treatment not carried out due to patient leaving prior to being seen by health care provider
CPT/HCPCS: 80053; 84484; 85025; 93005

== ENCOUNTER 2024-09-18 04:33 | Emergency (ER) | payer OTHER, SELFPAY ==
[2024-09-18 04:38] VITALS: BP 152/93
--- NOTE | 2024-09-18 05:08 | ED.GENMED ---
History of Present Illness
General
Chief Complaint: Blood Pressure Problem
Source: patient
Time Seen by Provider: 09/18/24 04:58
History of Present Illness
History of Present Illness:
Patient presents to the emergency room concerned about elevated blood pressure. Patient had checked in here at the emergency room twice in the past 24 hours but did not have a evaluation because she felt the wait was too long. She did have some
blood work drawn and she returns also to learn the results of her labs. Patient states she does not have a primary care doctor to follow-up with.
Past History
Past History
ED Past Medical History: HTN, NIDDM and Psychiatric (Anxiety)
ED Past Surgical History: Gynecological (Tubal ligation) and Other (Ear tubes)
Social History
Tobacco: Non-smoker
Alcohol: None
Personal: Partner
Living: with roommate
Employment: Not employed
Family History
Family History: Other (Noncontributory)
Phy Exam
Physical Exam
Physical Exam:
General: Awake, Alert, Oriented X3. No acute distress.
Vitals: Mildly hypertensive
Head: Atraumatic
Eyes: Pupils equal, EOMI
Throat: Airway intact, no exudates
Neck: Trachea midline
Lungs: Clear and equal b/l
Heart: Regular rate, no murmurs
Abd: Soft, Nontender, No pulsatile mass
Neuro: Nonfocal
Skin: Warm, dry, no rash
Extremities: pulses equal b/l, no edema
Course
Vital Signs
Initial and Last Documented VS:
Initial Vital Signs
Temp Pulse Resp BP Pulse Ox
97.9 F 78 18 152/93 97
09/18/24 04:38 09/18/24 04:38 09/18/24 04:38 09/18/24 04:38 09/18/24 04:38
Last Documented Vital Signs
Temp Pulse Resp BP Pulse Ox
97.9 F 72 16 125/74 97
09/18/24 04:38 09/18/24 05:30 09/18/24 05:30 09/18/24 05:30 09/18/24 05:30
MDM/Problems Addressed
Differential Diagnosis Includes:
Uncontrolled hypertension, electrolyte abnormality, ectopy
MDM/Problems Addressed:
Labs drawn earlier today reviewed. No significant abnormalities. Blood pressure is mildly elevated but not to a level that I feel initiation of antihypertensives is appropriate in the emergency room. Her registration information list Dr. Kennedy S
or primary care doctor but she states she does not have a primary care doctor. I left a message for the [facility] so they can arrange an appointment for the patient. She was quite happy to have this connection. EKG from
earlier today reviewed and documented in this note.
*Pulse Oximetry
Patient hypoxic: no
*EKG
Interpreted by ED Provider?: Yes
Heart Rate: 98
Rate: normal
Rhythm: sinus
Inez: normal axis
Interval: normal interval
QRS Pattern: normal QRS
Ischemia: no ischemia
*[employer] Interpretation
Rate: normal
Interpretation: normal
Rhythm: sinus
*Critical Care Note
Total Time (30-74mins, 75-104mins- exclusive of procedures): Not Applicable
ED Attending Note
-
Portions of this chart may have been created with voice recognition software.� Occasional wrong word or��sound alike� substitutions may have occurred due to the inherent limitations of voice recognition software.
Discharge Plan
Departure
Patient Disposition: Home (Routine Discharge)
Date of Disposition: 09/18/24
Time of Disposition: 05:11
Patient with high blood pressure during this ER visit?: Yes
Condition: Good
Discharge Problem:
Palpitations
Instructions: High Blood Pressure (DC), Palpitations
Prescriptions:
No Action
levofloxacin 750 mg tablet
750 mg PO DAILY Qty: 6 0RF
metronidazole 500 mg tablet
500 mg PO BID Qty: 12 0RF
azithromycin [Zithromax] 250 mg tablet
250 mg PO DAILY Qty: 6 0RF
fluticasone propionate [Flonase Allergy Relief] 50 mcg/actuation spray,suspension
1 spray intranasal BID Qty: 16 0RF
Referrals:
[facility] [Outside]
Interventions
Interventions:
*Risk Screen - Suicide Last Done: 09/18/24 04:34
*General Assessment Last Done: 09/18/24 05:07
*Neglect/Abuse Screening Last Done: 09/18/24 04:34
*ED- Fall Risk Assessment Last Done: 09/18/24 05:07
*ED COVID-19 Vaccine History Last Done: 09/18/24 05:07
*Nursing Disposition Last Done: 09/18/24 05:30
ED- Cardiac Assessment Last Done: 09/18/24 05:07
ED- Neurological Assessment Last Done: 09/18/24 05:07
ED- Pulmonary Assessment Last Done: 09/18/24 05:07
Discharge Date and Time
Discharge Date/Time: 09/18/24 05:30
Print Language: BHUTANESE
[2024-09-18 05:23] VITALS: BP 125/74
[2024-09-18 05:30] VITALS: BP 125/74
== END 2024-09-18 05:30 | disposition home or self-care (01) ==
LOC: EMR 04:33
PROVIDERS: EMERGENCY PHYSICIAN Emergency Medicine
DX: R00.2 Palpitations (principal); I10 Essential (primary) hypertension; E11.9 Type 2 diabetes mellitus without complications; F41.9 Anxiety disorder, unspecified; Z98.51 Tubal ligation status
CPT/HCPCS: 99282

== ENCOUNTER 2024-11-15 22:46 | Emergency (ER) | payer OTHER, SELFPAY ==
[2024-11-15 22:50] VITALS: BP 155/97
--- NOTE | 2024-11-15 23:17 | ED.GENMED ---
History of Present Illness
General
Chief Complaint: Abdominal Symptoms
Source: patient
Exam Limitations: none
Time Seen by Provider: 11/15/24 23:13
Nursing documentation reviewed up to this point in time: agreed with
History of Present Illness
History of Present Illness:
Note:
CHIEF COMPLAINT(S)
Increased gastroesophageal reflux and difficulty swallowing.
HISTORY OF PRESENT ILLNESS
The patient is a 73-year-old female who presents with complaints of GERD, pre-diabetes presents to the ER today with concerns of increasing belching, acid reflux, and throat burning lasting for the past four to five days, occasionally with
associated difficulty swallowing. She reports that symptoms are more pronounced when lying flat and at night. The discomfort is felt primarily in the lower throat area and is described as a burning sensation, with increased spitting. She also states
that her tongue feels irritated and feels like a portion of the tongue is swollen. The patient denies any chest pain or abdominal discomfort. She recalls experiencing similar episodes two to three times in the past, which resolved on its own. She
has been taking a medication, seemingly a proton pump inhibitor, for two days now, with administration at 8 PM. This has not been helping. She does not follow with a GI doctor. The patients dietary habits include a significant intake of milk, ice
cream, salads with tomatoes, and coffee, which she acknowledges may exacerbate her symptoms. She also reports ingesting heavily peppered turkey fried dishes several times a week. There is no personal history and no family history of heart problems
for either the patient or her family. She reports difficulty swallowing at times but states that she is able to eat without difficulty. She denies shortness of breath, lip swelling, lisinopril use, exposure to allergins.
PHYSICAL EXAM
Nursing notes reviewed and vital signs reviewed.
General: Patient is well appearing and in no acute distress; non-toxic
Skin: Warm and dry, no rashes or lesions
Head: Normocephalic, atraumatic
Eyes: Sclera non-icteric. EOMs intact.
Mouth: Uvula midline, no uvular edema. No tongue or lip swelling noted. No intraoral lesions.
Cardiac: Regular rate and rhythm, no murmurs
Peripheral Vascular: No lower extremity swelling or edema
Pulm: Normal respiratory effort, no wheezes, rales, rhonchi
Abdomen: No abdominal tenderness to palpation
Neuro: CN II-XII intact, no focal neurologic deficits.
Psychiatric: Appropriate mood and affect.
PROBLEM LIST
Acute Problems:
- Gastroesophageal reflux
- Difficulty swallowing
PLAN
- Plan originally to give IV and start fluids, pepcid, protonix and give GI cocktail. Patient is concerned about GI cocktail and would like to try a different medication. Patient does not want IV
- Initiate treatment with Carafate
- Rule out cardiac
- CBC, CMP, lipase, troponin
- Advise the patient on dietary modifications
- Recommend follow-up with a communication professor for potential endoscopic evaluation if symptoms persist.
DIFFERENTIAL DIAGNOSIS
The Differential Diagnosis includes, in no particular order and is not limited to:
- Gastroesophageal reflux disease (GERD)
- Esophagitis
- Esophageal stricture
- Pharyngeal inflammatory changes
- Peptic ulcer disease
- Esophageal motility disorders
- Escobar�s esophagus
- Hiatal hernia
- Non-ulcer dyspepsia
- Esophageal web or ring
CHART REVIEW
Reviewed ER physician documentation from 09/18/2024 patient seen for palpitations had labs drawn showing no significant abnormalities and she was not started on any medication she was discharged to the care of her primary care provider
Reviewed discharge summary from 05/31/2024 patient seen for sepsis secondary to acute complicated diverticulitis
MDM/disposition
The patient is a 73-year-old female who presents with complaints of GERD, pre-diabetes presents to the ER today with concerns of increasing belching, acid reflux, and throat burning lasting for the past four to five days, occasionally with
associated difficulty swallowing. No associated chest pain or discomfort. She also felt like the side of her tongue got swollen and underneath the tongue area however on exam she has no signs of swelling her airway is patent there are no intraoral
lesions. On exam, she is well-appearing no acute distress. She has no abdominal tenderness.
Her CBC and CMP is unremarkable, her lipase is normal. Her troponin is undetectable and her ECG shows normal sinus rhythm with no ischemic changes. No indication for repeat troponin at this time. Patient was given dose of Carafate and finds
relief in symptoms. Will send to pharmacy and will also start on Protonix trial. Advised to stop Nexium. Advised to limit acidic foods. Advised to follow-up with GI as outpatient. Patient stable for discharge.
Past History
Past History
ED Past Medical History: HTN, NIDDM and Psychiatric (Anxiety)
ED Past Surgical History: Gynecological (Tubal ligation) and Other (Ear tubes)
Social History
Tobacco: Non-smoker
Alcohol: None
Personal: Partner
Living: with roommate
Employment: Not employed
Family History
Family History: Other (Noncontributory)
Review of Systems
Review of Systems
All Other Systems: ROS reviewed and negative except as documented in HPI and ROS
Phy Exam
Physical Exam
Physical Exam:
see hpi
Course
Orders/Labs/Results
Orders:
Orders
11/15/24 23:37
Sucralfate Suspension [Carafate Suspension] 1 gm PO NOW STA
11/15/24 23:38
Electrocardiogram (*1) Urgent
Reason for Study: Other
Other Reason for Exam: reflux symptoms
11/15/24 23:45
Complete Blood Count/With Diff Urgent
Comprehensive Metabolic Panel Urgent
Lipase Urgent
Troponin I Urgent
Abnormal Lab Results
11/15/24
23:45
Absolute Monos (auto) 0.7 H 10^3/uL
(0.1-0.6)
Monocytes % 11.4 H %
(1.7-9.3)
Eosinophils % 6.9 H %
(0-6)
Chloride 108 H mmol/L
(98-107)
Glucose 126 H mg/dl
(70-99)
11/15/24 23:45
11/15/24 23:45
Vital Signs
Initial and Last Documented VS:
Initial Vital Signs
Temp Pulse Resp BP Pulse Ox
98.0 F 91 16 155/97 97
11/15/24 22:50 11/15/24 22:50 11/15/24 22:50 11/15/24 22:50 11/15/24 22:50
Last Documented Vital Signs
Temp Pulse Resp BP Pulse Ox
98.0 F 91 16 155/97 97
11/15/24 22:50 11/15/24 22:50 11/15/24 22:50 11/15/24 22:50 11/15/24 23:18
*Pulse Oximetry
SaO2: 97
Oxygen Mode of Delivery: Room air
Patient hypoxic: no
*Critical Care Note
Total Time (30-74mins, 75-104mins- exclusive of procedures): Not Applicable
ED Attending Note
-
Portions of this chart may have been created with voice recognition software.� Occasional wrong word or��sound alike� substitutions may have occurred due to the inherent limitations of voice recognition software.
Discharge Plan
Departure
Patient Disposition: Home (Routine Discharge)
Date of Disposition: 11/16/24
Time of Disposition: 00:52
Patient with high blood pressure during this ER visit?: Yes
Condition: Good
Discharge Problem:
GERD with esophagitis
Instructions: Acid reflux and GERD in adults, BLOOD PRESSURE
Prescriptions:
New
pantoprazole [Protonix] 20 mg tablet,delayed release (DR/EC)
20 mg PO DAILY 14 Days Qty: 14 0RF
sucralfate [Carafate] 100 mg/mL suspension
1 g PO BID 7 Days Qty: 140 0RF
No Action
levofloxacin 750 mg tablet
750 mg PO DAILY Qty: 6 0RF
metronidazole 500 mg tablet
500 mg PO BID Qty: 12 0RF
azithromycin [Zithromax] 250 mg tablet
250 mg PO DAILY Qty: 6 0RF
fluticasone propionate [Flonase Allergy Relief] 50 mcg/actuation spray,suspension
1 spray intranasal BID Qty: 16 0RF
Referrals:
Selene Wolfe MD [Active, Gastroenterology] - Call in 1-3 days for appt
Blake Louis MD [Family Provider, Internal Medicine]
Activity Restrictions/Additional Instructions:
Please stop taking Nexium. Please start taking pantoprazole 1 tablet once daily for 2-week trial. You can also take Carafate, you can drink 1 g of the medication twice daily for a week. Please take this on empty stomach typically 1 hour before
meals.
Your blood work is unremarkable. Your troponin is undetectable. Your ecg is normal.
Please follow up with your PCP.
PLEASE RETURN TO THE ER SHOULD YOU DEVELOP CHEST PAIN, SHORTNESS OF BREATH, LIP SWELLING, INABILITY TO SWALLOW, INABILITY TO TOLERATE ORAL INTAKE, ABDOMINAL PAIN, FEVERS OR CHILLS, OR ANY OTHER SIGNS OR SYMPTOMS WORRISOME TO YOU.
Interventions
Interventions:
*Risk Screen - Suicide Last Done: 11/15/24 22:50
*General Assessment Last Done: 11/15/24 23:37
*Neglect/Abuse Screening Last Done: 11/15/24 22:50
*ED- Fall Risk Assessment Last Done: 11/15/24 22:50
*ED COVID-19 Vaccine History Last Done: 11/15/24 22:50
*Nursing Disposition Last Done: 11/16/24 01:22
EM-Gthynk-Ucjyvafitq Assessment Last Done: 11/15/24 23:36
Discharge Date and Time
Print Language: SOLOM[place] ISLANDER
[2024-11-15 23:36] VITALS: BMI 34.4
[2024-11-15] MEDS: CARAFATE SUSPENSION 1 GM PO (23:44)
[2024-11-15 23:55] LABS: Hematocrit 38.6 % (37.0-47.0); Hemoglobin 13.3 g/dL (12.0-16.0); Mean Corp Hgb Conc. 34.5 g/dL (33.0-37.0); Mean Corpuscular Volume 89.1 fL (81.0-99.0); Nucleated Red Blood Cells % 0 %; Platelet Count 248 10^3/uL (130-400); Red Cell Dist. Width 12.9 % (11.5-14.5)
[2024-11-16 00:05] LABS: ALT (SGPT) 17 U/L (0-35); AST (SGOT) 21 U/L (14-36); Albumin 4.1 g/dl (3.5-5.0); Alkaline Phosphatase 65 U/L (38-126); Blood Urea Nitrogen 16 mg/dl (7-17); Calcium 9.2 mg/dl (8.4-10.2); Carbon Dioxide 26 mmol/L (22-30); Chloride 108 mmol/L (98-107); Estimated Creatinine Clearance 64 ml/min; Glucose 126 mg/dl (70-99); Lipase 91 U/L (23-300); Potassium 3.7 mmol/L (3.5-5.1); Sodium 138 mmol/L (135-145); Total Protein 7.3 g/dl (6.3-8.2); eGFR > 60.00
[2024-11-16 00:21] LABS: Troponin I < 0.012 ng/ml
== END 2024-11-16 01:23 | disposition home or self-care (01) ==
LOC: EMR 22:46
PROVIDERS: Physician Assistant; EMERGENCY PHYSICIAN Emergency Medicine; FAMILY PHYSICIAN Internal Medicine
DX: K21.00 Gastro-esophageal reflux disease with esophagitis, without bleeding (principal); E11.9 Type 2 diabetes mellitus without complications; I10 Essential (primary) hypertension; F41.9 Anxiety disorder, unspecified; Z98.51 Tubal ligation status
CPT/HCPCS: 99283; 80053; 83690; 84484; 85025; 93005

== ENCOUNTER 2024-11-17 20:41 | Emergency (ER) | payer OTHER, SELFPAY ==
[2024-11-17 20:45] VITALS: BP 166/102
--- NOTE | 2024-11-17 20:59 | ED.GENMED ---
History of Present Illness
<Gifty Barlow MD, Resident - Last Filed: 11/17/24 21:46>
General
Chief Complaint: Abdominal Symptoms
Source: patient
Time Seen by Provider: 11/17/24 20:56
Nursing documentation reviewed up to this point in time: agreed with
History of Present Illness
History of Present Illness:
73yo female with a past medical history of GERD, prediabetes returns to the ER following her visit yesterday due to continued spitting. She says that she was told yesterday that she has a choice between getting IV Protonix versus p.o. Protonix. At
the time she chose p.o. Protonix and says that after taking 1 pill does not really help her. She returns to get IV dose as she believes that might help her more. At this time she does not report any chest pain, shortness of breath, difficulty
breathing, nausea or vomiting or abdominal pain. Her symptoms have not resolved since yesterday.
Past History
<Gifty Barlow MD, Resident - Last Filed: 11/17/24 21:46>
Past History
ED Past Medical History: HTN, NIDDM and Psychiatric (Anxiety)
ED Past Surgical History: Gynecological (Tubal ligation) and Other (Ear tubes)
Social History
Tobacco: Non-smoker
Alcohol: None
Personal: Partner
Living: with roommate
Employment: Not employed
Family History
Family History: Other (Noncontributory)
Review of Systems
<Gifty Barlow MD, Resident - Last Filed: 11/17/24 21:46>
Review of Systems
Allergies reviewed?: Yes
All Other Systems: ROS reviewed and negative except as documented in HPI and ROS
Phy Exam
<Gifty Barlow MD, Resident - Last Filed: 11/17/24 21:46>
General Physical Exam
General Presentation: well appearing and no apparent distress
General Skin: warm and dry
General Habitus: normal
General Mental: alert
General Hydration: appears well hydrated
Cardiovascular Exam
Cardiovascular Exam: regular rate/rhythm, no edema and no murmur
Pulmonary Exam
Pulmonary Exam: lungs clear, no respiratory distress, no crackles and no wheezing
Gastrointestinal Exam
Gastrointestinal Exam: normal bowel sounds, non tender, soft and distended
Skin Exam
Skin Exam: normal color and warm/dry
Course
<Gifty Barlow MD, Resident - Last Filed: 11/17/24 21:46>
Vital Signs
Initial and Last Documented VS:
Initial Vital Signs
Temp Pulse Resp BP Pulse Ox
99.0 F 92 20 166/102 95
11/17/24 20:45 11/17/24 20:45 11/17/24 20:45 11/17/24 20:45 11/17/24 20:45
Last Documented Vital Signs
Temp Pulse Resp BP Pulse Ox
99.0 F 92 20 141/91 98
11/17/24 20:45 11/17/24 20:45 11/17/24 20:45 11/17/24 21:18 11/17/24 21:18
<Mohit Jonas, DO - Last Filed: 11/17/24 21:46>
Vital Signs
Initial and Last Documented VS:
Initial Vital Signs
Temp Pulse Resp BP Pulse Ox
99.0 F 92 20 166/102 95
11/17/24 20:45 11/17/24 20:45 11/17/24 20:45 11/17/24 20:45 11/17/24 20:45
Last Documented Vital Signs
Temp Pulse Resp BP Pulse Ox
99.0 F 92 20 141/91 98
11/17/24 20:45 11/17/24 20:45 11/17/24 20:45 11/17/24 21:18 11/17/24 21:18
<Gifty Barlow MD, Resident - Last Filed: 11/17/24 21:46>
MDM/Problems Addressed
Differential Diagnosis Includes:
GERD, esophagitis, hiatal hernia
MDM/Problems Addressed:
73-year-old female returns to the ED following her visit yesterday.
Had lengthy conversation with her regarding whether she should take IV versus p.o. Protonix.
She only took 1 dose of Protonix this morning and came to the ED afterwards due to her symptoms not fully resolving
After lengthy discussion, patient is with continue p.o. treat and follow-up with GI in the outpatient setting for further workup of her GERD
Chronic conditions affecting care: Other (GERD, hiatal hernia)
<Gifty Barlow MD, Resident - Last Filed: 11/17/24 21:46>
*Pulse Oximetry
SaO2: 95
Oxygen Mode of Delivery: Room air
Patient hypoxic: no
*Critical Care Note
Total Time (30-74mins, 75-104mins- exclusive of procedures): Not Applicable
ED Attending Note
<Gifty Barlow MD, Resident - Last Filed: 11/17/24 21:46>
-
Portions of this chart may have been created with voice recognition software.� Occasional wrong word or��sound alike� substitutions may have occurred due to the inherent limitations of voice recognition software.
<Mohit Jonas, DO - Last Filed: 11/17/24 21:46>
ED Attending Note
Patient seen and examined by attending physician: Yes
I performed a history and physical exam of patient and discussed management with resident, I reviewed resident's note and agree with documented findings and plan of care.: Yes
ED Attending Note:
I have reviewed and agree with history and plan by Gifty Barlow MD. My exam revealed 81-year-old female in no acute distress
General: no apparent distress, not acutely ill
Neck: supple. no meningeal signs. normal posterior pharynx
Heart: s1/s2 regular rate and rhythm, no murmur. equal radial
pulses.
HEENT: Pupils equal round reactive to light, EOMI
Lungs: no acute respiratory distress. clear bilaterally
Abdomen: normal bowel sounds. not tender. no CVAT
Neuro: alert and oriented. no focal neurological deficits cranial nerves II through XII intact
Skin: no rash
Psychiatric: well kept. interactive and cooperative
Extremities: no edema. no calf tenderness. negative homans. good distal pulses
Patient had normal cardiac workup yesterday her symptoms have not changed. Do not suspect ACS or PE. Stable for discharge. Follow-up with gastroenterology. Primary care. Return precautions given
Discharge Plan
Departure
Patient Disposition: Home (Routine Discharge)
Date of Disposition: 11/17/24
Time of Disposition: 21:44
Patient with high blood pressure during this ER visit?: Yes
Condition: Good
Discharge Problem:
GERD (gastroesophageal reflux disease)
Instructions: Acid Reflux, Adult and Adolescent ED, BLOOD PRESSURE
Prescriptions:
No Action
levofloxacin 750 mg tablet
750 mg PO DAILY Qty: 6 0RF
metronidazole 500 mg tablet
500 mg PO BID Qty: 12 0RF
azithromycin [Zithromax] 250 mg tablet
250 mg PO DAILY Qty: 6 0RF
fluticasone propionate [Flonase Allergy Relief] 50 mcg/actuation spray,suspension
1 spray intranasal BID Qty: 16 0RF
pantoprazole [Protonix] 20 mg tablet,delayed release (DR/EC)
20 mg PO DAILY 14 Days Qty: 14 0RF
sucralfate [Carafate] 100 mg/mL suspension
1 g PO BID 7 Days Qty: 140 0RF
Referrals:
Selene Wolfe MD [Active, Gastroenterology]
Referral Note: Follow up with GI within next week for workup of GERD
UNKNOWN - PT DOES,NOT KNOW [Family Provider]
Activity Restrictions/Additional Instructions:
As discussed, please continue taking Pantoprazole 20mg daily.
Please follow up with GI specialist in the outpatient setting (Dr. Wolfe)
Should symptoms worsen and you develop worsening chest pain, shortness of breath or any fevers/chills, please return to the ED.
Interventions
Interventions:
*Risk Screen - Suicide Last Done: 11/17/24 20:45
*General Assessment Last Done: 11/17/24 20:45
*Neglect/Abuse Screening Last Done: 11/17/24 20:45
Discharge Date and Time
Print Language: HUNGARIAN
[2024-11-17 21:18] VITALS: BP 141/91
== END 2024-11-17 22:15 | disposition home or self-care (01) ==
LOC: EMR 20:41
PROVIDERS: EMERGENCY PHYSICIAN Emergency Medicine
DX: K21.9 Gastro-esophageal reflux disease without esophagitis (principal); K44.9 Diaphragmatic hernia without obstruction or gangrene; I10 Essential (primary) hypertension; E11.9 Type 2 diabetes mellitus without complications; Z98.51 Tubal ligation status
CPT/HCPCS: 99282

== ENCOUNTER 2025-03-16 16:22 | Emergency (ER) | payer OTHER, SELFPAY ==
[2025-03-16 16:27] VITALS: BP 165/98
--- NOTE | 2025-03-16 17:14 | ED.GENMED ---
History of Present Illness
General
Chief Complaint: Abdominal Symptoms
Source: patient
Exam Limitations: none
Time Seen by Provider: 03/16/25 16:37
Nursing documentation reviewed up to this point in time: agreed with
History of Present Illness
History of Present Illness:
Patient is a 74-year-old female history of reflux, diverticulitis presents to the ER for evaluation. She has been has similar issues her pain in her mid upper abdomen. She feels this is her reflux. It is worse with coffee drinking. She
recently has decreased but and has been drinking 2 cups of coffee per day. She was prescribed pantoprazole in the past however only takes it as needed and did take 1 dose this morning.
She has never had endoscopy. Unsure when she last saw GI.
Past History
Past History
ED Past Medical History: HTN, NIDDM and Psychiatric (Anxiety)
ED Past Surgical History: Gynecological (Tubal ligation) and Other (Ear tubes)
Social History
Tobacco: Non-smoker
Alcohol: None
Personal: Partner
Living: with roommate
Employment: Not employed
Family History
Family History: Other (Noncontributory)
Phy Exam
General Physical Exam
General Presentation: no apparent distress
General age: appears stated age
General Skin: warm and dry
General Habitus: normal
General Mental: alert
Gastrointestinal Exam
Gastrointestinal Exam: soft and other (mild tenderness to upper/mid abdomen )
Neurological Exam
Neurological Exam: alert and oriented x3
Musculoskeletal Exam
Musculoskeletal Exam: full ROM
Skin Exam
Skin Exam: normal color and warm/dry
Psychiatric Exam
Psychiatric Exam: normal mood/affect
Course
Orders/Labs/Results
Orders:
Orders
03/16/25 17:17
Electrocardiogram (*1) Stat
Reason for Study: Abdominal Pain
EKG- Treatment ONCE
IV Insert/Care/Rem.- Treatment PRN
Pantoprazole [Protonix IV] 40 mg IV NOW STA
03/16/25 17:19
Mag Hydrox/Al Hydrox/Simeth [Maalox] 30 ml Phenobarb/Hyoscy/Atropine/Scop [] 10 ml PO NOW
03/16/25 17:23
CT Abd/Pel (IV only)-DH only Urgent
Comment:
Reason For Exam: pain
03/16/25 17:33
Mag Hydrox/Al Hydrox/Simeth [Maalox] 30 ml .ROUTE .STK-MED ONE
Phenobarb/Hyoscy/Atropine/Scop [] 10 ml .ROUTE .STK-MED ONE
03/16/25 17:47
Complete Blood Count/With Diff Urgent
Comprehensive Metabolic Panel Urgent
Lipase Urgent
03/16/25 17:50
Urinalysis Urgent
Date Specimen was Collected: 03/16/25
Time Specimen was Collected: 17:49
Urine Microscopic Urgent
Date Specimen was Collected: 03/16/25
Time Specimen was Collected: 17:49
Abnormal Lab Results
03/16/25 03/16/25
17:47 17:50
Monocytes % 9.6 H %
(1.7-9.3)
Glucose 165 H mg/dl
(70-99)
Urine Albumin 1+ A
(Neg - Trace)
03/16/25 17:47
03/16/25 17:47
Vital Signs
Initial and Last Documented VS:
Initial Vital Signs
Temp Pulse Resp BP Pulse Ox
97.8 F 94 20 165/98 96
03/16/25 16:27 03/16/25 16:27 03/16/25 16:27 03/16/25 16:27 03/16/25 16:27
Last Documented Vital Signs
Temp Pulse Resp BP Pulse Ox
97.8 F 94 20 165/98 96
03/16/25 16:27 03/16/25 16:27 03/16/25 16:27 03/16/25 16:27 03/16/25 17:17
MDM/Problems Addressed
Differential Diagnosis Includes:
Not limited to reflux esophagitis gastritis
MDM/Problems Addressed:
symptoms are consistent with reflux .patient has been here several times in the past with similar complaints and symptoms.
Not limited to reflux, esophagitis patient on exam is mildly tender therefore CAT scan was done however no acute findings on CAT scan. Patient did feel relief with pantoprazole. Will DC with Pantoprazole prescription reviewed taking this medicine
daily for the next 2 weeks. discussed dietary restrictions including avoid caffeine and spicy foods etc. Will DC with follow-up with family doctor as well as GI.
Chronic conditions affecting care:
GERD
*Radiology
Radiology exam reviewed: radiology read reviewed
*Pulse Oximetry
SaO2: 96
Oxygen Mode of Delivery: Room air
Patient hypoxic: no
*Critical Care Note
Total Time (30-74mins, 75-104mins- exclusive of procedures): Not Applicable
Data Reviewed
Review of Other/Old Records Reveals: Labs, Radiology Studies and Other (Previous ER chart)
ED Attending Note
-
Portions of this chart may have been created with voice recognition software.� Occasional wrong word or��sound alike� substitutions may have occurred due to the inherent limitations of voice recognition software.
Discharge Plan
Departure
Patient Disposition: Home (Routine Discharge)
Date of Disposition: 03/16/25
Time of Disposition: 20:09
Patient with high blood pressure during this ER visit?: Yes
Condition: Fair
Covid-19: Not Applicable
Discharge Problem:
GERD
Instructions: Acid reflux and GERD in adults - ED (DC), BLOOD PRESSURE
Prescriptions:
New
pantoprazole [Protonix] 40 mg tablet,delayed release (DR/EC)
40 mg PO DAILY Qty: 14 0RF
No Action
levofloxacin 750 mg tablet
750 mg PO DAILY Qty: 6 0RF
metronidazole 500 mg tablet
500 mg PO BID Qty: 12 0RF
azithromycin [Zithromax] 250 mg tablet
250 mg PO DAILY Qty: 6 0RF
fluticasone propionate [Flonase Allergy Relief] 50 mcg/actuation spray,suspension
1 spray intranasal BID Qty: 16 0RF
pantoprazole [Protonix] 20 mg tablet,delayed release (DR/EC)
20 mg PO DAILY 14 Days Qty: 14 0RF
sucralfate [Carafate] 100 mg/mL suspension
1 g PO BID 7 Days Qty: 140 0RF
Referrals:
Selene Wolfe MD [Active, Gastroenterology]
NONE,* [Family Provider, Internal Medicine]
Activity Restrictions/Additional Instructions:
As discussed avoid caffeine avoid spicy foods avoid alcohol chocolate. Avoid foods that are acidic. Follow-up close with family doctor in the next 2 days for reevaluation. It Is also recommended that you follow-up with GI .
please call to make an appointment as soon as possible. Return if any worsening of symptoms
Interventions
Interventions:
*Risk Screen - Suicide Last Done: 03/16/25 18:06
*General Assessment Last Done: 03/16/25 16:27
*Neglect/Abuse Screening Last Done: 03/16/25 18:06
*ED COVID-19 Vaccine History Last Done: 03/16/25 18:05
*ED Influenza Vaccine History Last Done: 03/16/25 18:05
[facility] Fall Risk Assessment Tool Last Done: 03/16/25 18:06
IA-Oqcsrj-Wrtjzejglh Assessment Last Done: 03/16/25 18:06
Discharge Date and Time
Print Language: VIET[place]ESE
[2025-03-16] MEDS: PROTONIX IV 40 MG IV (17:43)
[2025-03-16] MEDS: MAALOX 40 PO (17:43)
[2025-03-16 17:56] LABS: Hematocrit 42.1 % (37.0-47.0); Hemoglobin 14.0 g/dL (12.0-16.0); Mean Corp Hgb Conc. 33.3 g/dL (33.0-37.0); Mean Corpuscular Volume 90.7 fL (81.0-99.0); Nucleated Red Blood Cells % 0 %; Platelet Count 290 10^3/uL (130-400); Red Cell Dist. Width 13.2 % (11.5-14.5)
[2025-03-16 17:59] LABS: Urine Character Clear (Clear)
[2025-03-16 18:05] VITALS: BMI 32.9
[2025-03-16 18:23] LABS: ALT (SGPT) 22 U/L (0-35); AST (SGOT) 26 U/L (14-36); Albumin 4.2 g/dl (3.5-5.0); Alkaline Phosphatase 58 U/L (38-126); Blood Urea Nitrogen 16 mg/dl (7-17); Calcium 9.2 mg/dl (8.4-10.2); Carbon Dioxide 25 mmol/L (22-30); Chloride 104 mmol/L (98-107); Estimated Creatinine Clearance 68 ml/min; Glucose 165 mg/dl (70-99); Lipase 92 U/L (23-300); Potassium 4.3 mmol/L (3.5-5.1); Sodium 135 mmol/L (135-145); Total Protein 7.6 g/dl (6.3-8.2); eGFR > 60.00
[2025-03-16 19:00] LABS: Urine Red Blood Cell 0-2 /HPF (0-2); Urine Squamous Cell 21-25 /LPF (Few); Urine White Cell 0-2 /HPF (0-5)
[2025-03-16 20:30] VITALS: BP 130/76
== END 2025-03-16 20:52 | disposition home or self-care (01) ==
LOC: EMR 16:22
PROVIDERS: Nurse Practitioner; EMERGENCY PHYSICIAN Student in an Organized Health Care Education/Training Program
DX: K21.9 Gastro-esophageal reflux disease without esophagitis (principal); E11.9 Type 2 diabetes mellitus without complications; I10 Essential (primary) hypertension
CPT/HCPCS: 99284; 96374; 74177; 80053; 81003; 81015; 83690; 85025; 93005; Q9967

== ENCOUNTER 2025-03-21 17:42 | Emergency (ER) | payer OTHER, SELFPAY ==
[2025-03-21 18:02] VITALS: BP 162/92
[2025-03-21 18:31] LABS: Hematocrit 40.6 % (37.0-47.0); Hemoglobin 14.0 g/dL (12.0-16.0); Mean Corp Hgb Conc. 34.5 g/dL (33.0-37.0); Mean Corpuscular Volume 89.6 fL (81.0-99.0); Nucleated Red Blood Cells % 0 %; Platelet Count 299 10^3/uL (130-400); Red Cell Dist. Width 13.1 % (11.5-14.5)
[2025-03-21 18:48] LABS: ALT (SGPT) 18 U/L (0-35); AST (SGOT) 21 U/L (14-36); Albumin 4.3 g/dl (3.5-5.0); Alkaline Phosphatase 73 U/L (38-126); Blood Urea Nitrogen 14 mg/dl (7-17); Calcium 9.5 mg/dl (8.4-10.2); Carbon Dioxide 24 mmol/L (22-30); Chloride 103 mmol/L (98-107); Glucose 85 mg/dl (70-99); Potassium 4.2 mmol/L (3.5-5.1); Sodium 134 mmol/L (135-145); Total Protein 7.5 g/dl (6.3-8.2); eGFR > 60.00
[2025-03-21 20:05] VITALS: BMI 35.6
[2025-03-21 20:07] VITALS: BP 162/86
[2025-03-21] MEDS: FLEET PHOSPHATE ENEMA-ADULT 135 ML RECTAL (21:44)
--- NOTE | 2025-03-21 22:24 | EDRN ---
Fleet enema administration: Digital rectal exam performed by MD Pereira. Patient not impacted. Order for fleet enema. Patient received 1/3 the fleet enema when she decided she did not want to proceed and wanted a soap suds enema. RN explained to patient
that we could finish treatment of the fleet's enema, and if she has no relief than RN can ask MD Pereira for an order for a soap suds enema. Patient no longer wants fleet enema and demands a soap suds enema. MD Pereira notified of the situation and
patient's demand. Patient becoming increasingly irate while waiting for MD Pereira's orders and decisions.
--- NOTE | 2025-03-21 22:39 | ED.GENMED ---
History of Present Illness
General
Chief Complaint: Bowel Problem
Source: patient
Exam Limitations: none
Time Seen by Provider: 03/21/25 20:00
Nursing documentation reviewed up to this point in time: agreed with
History of Present Illness
History of Present Illness:
Patient diagnosed with GERD during ED visit 4 days ago, presents to ED secondary to inability to have bowel movement, since starting pantoprazole. Denies abdominal pain. Denies nausea or vomiting. Patient denies having the urge to have bowel
movement, but does report feeling uncomfortable. Denies abdominal pain. Denies trauma. Denies headache or dizziness. Denies recent change in diet. Denies recent illness. Denies recent travel.
Past History
Past History
ED Past Medical History: HTN, NIDDM and Psychiatric (Anxiety)
ED Past Surgical History: Gynecological (Tubal ligation) and Other (Ear tubes)
Social History
Tobacco: Non-smoker
Alcohol: None
Personal: Partner
Living: with roommate
Employment: Not employed
Family History
Family History: Other (Noncontributory)
Review of Systems
Review of Systems
Allergies reviewed?: Yes
All Other Systems: ROS reviewed and negative except as documented in HPI and ROS
Constitutional: Reports no symptoms
Respiratory: Reports no symptoms
Cardiac: Reports no symptoms
ABD/GI: Reports constipated; Denies abdominal pain, vomiting or diarrhea
Musculoskeletal: Reports no symptoms
Skin: Reports no symptoms
Neurological: Reports no symptoms
Phy Exam
Physical Exam
Physical Exam:
Physical Exam
General: no apparent distress, not acutely ill. afebrile
Head: nc/at. eomi
Neck: supple. normal range of motion
Abdomen: normal bowel sounds. not tender. rectal exam: (YOSELYN Medina, at bedside): no stool noted.
Neuro: alert and oriented x 3. no focal neurological deficits
Skin: no rash
Psychiatric: well kept. interactive and cooperative
Extremities: no edema. no calf tenderness.
Course
Orders/Labs/Results
Orders:
Orders
03/21/25 18:13
Complete Blood Count/With Diff Urgent
Comprehensive Metabolic Panel Urgent
03/21/25 19:59
CR Abdomen - 1 View Urgent
Comment:
Reason For Exam: abd pain w lack of BM
03/21/25 21:27
Phosphate Enema [Fleet Phosphate Enema-Adult] 135 ml RECTAL NOW STA
03/21/25 21:28
Phosphate Enema [Fleet Phosphate Enema-Adult] 135 ml .ROUTE .STK-MED ONE
03/21/25 22:38
Magnesium Citrate [Citroma] 300 ml PO ONCE ONE
Abnormal Lab Results
03/21/25
18:13
Neutrophils % 41.9 L %
(42.2-75.2)
Monocytes % 10.0 H %
(1.7-9.3)
Sodium 134 L mmol/L
(135-145)
03/21/25 18:13
03/21/25 18:13
Vital Signs
Initial and Last Documented VS:
Initial Vital Signs
Temp Pulse Resp BP Pulse Ox
98.0 F 85 16 162/92 98
03/21/25 18:02 03/21/25 18:02 03/21/25 18:02 03/21/25 18:02 03/21/25 18:02
Last Documented Vital Signs
Temp Pulse Resp BP Pulse Ox
98.0 F 92 18 158/89 99
03/21/25 18:02 03/21/25 22:50 03/21/25 22:50 03/21/25 22:50 03/21/25 22:50
MDM/Problems Addressed
MDM/Problems Addressed:
X-ray report reviewed and discussed with patient. Fleet enema provided but discontinued due to patient's discomfort. Otherwise, patient is afebrile, hemodynamically stable, and nontoxic-appearing, with soft benign abdominal exam. As such, decision
made to discharge patient home with negative citrate, to be taken upon discharge, along with diet modification and stool softener as an outpatient, i.e. MiraLAX. Patient also referred to GI physician for an outpatient consultation. Return
precaution provided, i.e. fever/abdominal pain/vomiting.
*Pulse Oximetry
SaO2: 99
Oxygen Mode of Delivery: Room air
Patient hypoxic: no
*Critical Care Note
Total Time (30-74mins, 75-104mins- exclusive of procedures): Not Applicable
ED Attending Note
-
Portions of this chart may have been created with voice recognition software.� Occasional wrong word or��sound alike� substitutions may have occurred due to the inherent limitations of voice recognition software.
Discharge Plan
Departure
Patient Disposition: Home (Routine Discharge)
Date of Disposition: 03/21/25
Time of Disposition: 22:39
Patient with high blood pressure during this ER visit?: Yes
Condition: Fair
Discharge Problem:
Constipation
Instructions: Constipation, Adult (DC), [place] diet
Prescriptions:
No Action
levofloxacin 750 mg tablet
750 mg PO DAILY Qty: 6 0RF
metronidazole 500 mg tablet
500 mg PO BID Qty: 12 0RF
azithromycin [Zithromax] 250 mg tablet
250 mg PO DAILY Qty: 6 0RF
fluticasone propionate [Flonase Allergy Relief] 50 mcg/actuation spray,suspension
1 spray intranasal BID Qty: 16 0RF
pantoprazole [Protonix] 20 mg tablet,delayed release (DR/EC)
20 mg PO DAILY 14 Days Qty: 14 0RF
sucralfate [Carafate] 100 mg/mL suspension
1 g PO BID 7 Days Qty: 140 0RF
pantoprazole [Protonix] 40 mg tablet,delayed release (DR/EC)
40 mg PO DAILY Qty: 14 0RF
Referrals:
Kelly Dowd, DO [Active, Gastroenterology]
UNKNOWN - PT DOES,NOT KNOW [Family Provider]
Activity Restrictions/Additional Instructions:
As discussed, please follow-up with your primary care physician and/or referred to GI physician for further evaluation and treatment. In the meantime, recommend diet modification along with utilization of [id number] laxatives, i.e. MiraLAX.
Interventions
Interventions:
*Risk Screen - Suicide Last Done: 03/21/25 18:02
*General Assessment Last Done: 03/21/25 18:02
*Neglect/Abuse Screening Last Done: 03/21/25 18:02
*ED COVID-19 Vaccine History Last Done: 03/21/25 18:02
*ED Influenza Vaccine History Last Done: 03/21/25 18:02
[facility] Fall Risk Assessment Tool Last Done: 03/21/25 20:05
*Nursing Disposition Last Done: 03/21/25 22:50
YZ-Ngqqqk-Dnoybakmfc Assessment Last Done: 03/21/25 20:05
Discharge Date and Time
Discharge Date/Time: 03/21/25 22:52
Print Language: KAZAKH
[2025-03-21] MEDS: CITROMA 300 ML PO (22:42)
[2025-03-21 22:50] VITALS: BP 158/89
== END 2025-03-21 22:52 | disposition home or self-care (01) ==
LOC: EMR 17:42
PROVIDERS: Emergency Medicine; EMERGENCY PHYSICIAN Emergency Medicine
DX: K59.00 Constipation, unspecified (principal); I10 Essential (primary) hypertension; E11.9 Type 2 diabetes mellitus without complications; K21.9 Gastro-esophageal reflux disease without esophagitis
CPT/HCPCS: 99284; 74018; 80053; 85025